=== PATIENT | male | born 1980 | race Caucasian/White ===

== ENCOUNTER → 2016-12-20 | Outpatient (CLI) | payer OTHER ==
--- NOTE | 2016-12-20 14:43 | FL ---
EXAMINATION TYPE: FL small bowel follow through DATE OF EXAM: 12/20/2016 COMPARISON: NONE HISTORY: Abdominal pain, history of ulcerative colitis TECHNIQUE: Following the oral administration of contrast sequential overhead radiographs were obtaine d. Fluoroscopic spot images of the distal small bowel and terminal ileum were obtained with real-time observation. FINDINGS: Transit time to the colon is 3 hours 20 minutes. Certified Orthotist/Pedorthist view is noncontributory Duodenum appears in normal position. Jejunal fold pattern appears normal. Ileal fold pattern appears normal. The terminal ileum appears normal. The cecum appears somewhat irregular. However, it is evident there is fecal debris present which may partially account for the appearance with incomplete distention. H owever, contrast extends into the transverse colon in the hepatic flexure also appears irregular. Wit h the patient's history of ulcerative colitis or underlying abnormality within the ascending colon an d hepatic flexure are not excluded. IMPRESSION: 1. Somewhat elongated transit time to the colon at 3 hours 20 minutes. 2. Structurally, small bowel appears within normal limits. 3. Irregularity within the cecum and ascending colon and hepatic flexure can be partially related to incomplete distention low underlying ulcerative colitis should also be considered within the differen tial.
== END | disposition home or self-care (01) ==
LOC: RADFLMAIN 09:07
PROVIDERS: ATTEND Surgery
DX: K63.89 Other specified diseases of intestine (principal)
CPT/HCPCS: 74250

== ENCOUNTER 2017-03-12 11:30 | Emergency (ER) | payer OTHER ==
[2017-03-12 11:35] VITALS: RESP 18
[2017-03-12] MEDS ORDERED: SODIUM CHLORIDE 0.9% 1,000 ML IV STA ×2 (12:34)
[2017-03-12] MEDS ORDERED: PANTOPRAZOLE 40 MG/10 ML VIAL IVP STA (12:34)
[2017-03-12] MEDS ORDERED: HYDROmorphone 2 MG/ML 1 ML SYRINGE IVP STA (12:34)
[2017-03-12] MEDS ORDERED: ONDANSETRON 4 MG/2 ML VIAL IVP STA (12:34)
[2017-03-12 13:18] LABS: ALT 53 U/L (21-72); AST 28 U/L (17-59); Albumin 4.5 g/dL (3.5-5.0); Alkaline Phosphatase 52 U/L (38-126); Amylase 55 U/L (30-110); Anion Gap 11 mmol/L; Appearance,Urine Clear (Clear); Bilirubin,Urine Negative (Negative); Blood Urea Nitrogen 17 mg/dL (9-20); Blood,Urine Negative (Negative); Calcium 9.8 mg/dL (8.4-10.2); Carbon Dioxide 29 mmol/L (22-30); Chloride 97 mmol/L (98-107); Color,Urine Yellow; Glucose 121 mg/dL (74-99); Glucose,Urine (UA) Negative (Negative); Ketones,Urine Negative (Negative); Leukocyte Esterase,Urine Negative (Negative); Lipase 86 U/L (23-300); Mucus,Urine Few /hpf; Nitrite,Urine Negative (Negative); Potassium 4.3 mmol/L (3.5-5.1); Protein,Urine 1+ (Negative); RBC,Urine 1 /hpf (0-5); Sodium 137 mmol/L (137-145); Specific Gravity,Urine 1.028 (1.001-1.035); Total Bilirubin 1.3 mg/dL (0.2-1.3); Total Protein 7.8 g/dL (6.3-8.2); WBC,Urine 2 /hpf (0-5)
[2017-03-12 13:31] LABS: Basophils % (A) 0 %; Eosinophils # (A) 0.1 k/uL (0-0.7); Eosinophils % (A) 1 %; HCT 48.8 % (39.0-53.0); HGB 16.3 gm/dL (13.0-17.5); Lymphocytes # (A) 1.1 k/uL (1.0-4.8); Lymphocytes % (A) 10 %; MCH 31.1 pg (25.0-35.0); MCHC 33.4 g/dL (31.0-37.0); MCV 93.1 fL (80.0-100.0); Mean Platelet Volume 7.2; Monocytes # (A) 0.5 k/uL (0-1.0); Monocytes % (A) 5 %; Neutrophils # (A) 9.2 k/uL (1.3-7.7); Neutrophils % (A) 84 %; Platelet Count 295 k/uL (150-450); RBC 5.24 m/uL (4.30-5.90); RDW 12.8 % (11.5-15.5); WBC 11.1 k/uL (3.8-10.6)
[2017-03-12] MEDS ORDERED: methylPREDNISolone SOD SUCCI 125 MG/2 ML VIAL IV STA (14:02)
--- NOTE | 2017-03-12 14:16 | ED ---
General Adult HPI - General Chief complaint: Nausea/Vomiting/Diarrhea Stated complaint: Vomiting Time Seen by Provider: 03/12/17 12:27 Source: patient, RN notes reviewed Mode of arrival: ambulatory Limitations: no limitations - History of Present Illness Initial comments: Patient is a 36-year-old male significant past mental history for ulcerative colitis, who presents emergency room today with a chief complaint of increased diarrhea and abdominal pain over the last week. Patient does admit that is been trying follow-up with GI. He states she's having issues with his insurance. He states he has been following up with family doctor who is been treating him in the meantime. He states been on steroids. He states that he is currently off steroids at this time just finishing. Patient states that he has a prescription to continue steroids but has been unable to get it because it was not feeling well over the last few days. He is supposed be on 10 mg of prednisone daily. Patient does admit that he has seen some blood in his stool. He admits to cramping in his abdomen. Patient states he has been able to keep down liquids. He has had some nausea. Denies any other complaints. Patient denies any recent fever, chills, shortness of breath, chest pain, back pain, vomiting, numbness or tingling, dysuria or hematuria, constipation, headaches or visual changes, or any other complaints. - Related Data Home Medications Medication Instructions Recorded Confirmed predniSONE See Taper PO DAILY 03/12/17 03/12/17 Previous Rx's Medication Instructions Recorded Ondansetron Odt [Zofran ODT] 4 mg PO Q8HR PRN #20 tab 03/12/17 Allergies Allergy/AdvReac Type Severity Reaction Status Date / Time No Known Allergies Allergy Verified 03/12/17 14:00 Review of Systems ROS Statement: Those systems with pertinent positive or pertinent negative responses have been documented in the HPI. ROS Other: All systems not noted in ROS Statement are negative. Past Medical History Past Medical History: No Reported History Additional Past Medical History / Comment(s): ulcerative colitis History of Any Multi-Drug Resistant Organisms: None Reported Past Surgical History: No Surgical Hx Reported Past Psychological History: No Psychological Hx Reported Smoking Status: Former smoker Past Alcohol Use History: None Reported Past Drug Use History: None Reported General Exam - General Exam Comments Initial Comments: General: The patient is awake and alert, in no distress, and does not appear acutely ill. Eye: Pupils are equal, round and reactive to light, extra-ocular movements are intact. No nystagmus. There is normal conjunctiva bilaterally. No signs of icterus. Ears, nose, mouth and throat: There are moist mucous membranes and no oral lesions. Neck: The neck is supple, there is no tenderness or JVD. Cardiovascular: There is a regular rate and rhythm. No murmur, rub or gallop is appreciated. Respiratory: Lungs are clear to auscultation, respirations are non-labored, breath sounds are equal. No wheezes, stridor, rales, or rhonchi. Gastrointestinal: Normal appearance of the abdomen. Normal bowel sounds. Soft on palpation. Patient does have tenderness to the left lower quadrant. No rebound tenderness. No guarding. No CVA tenderness. Musculoskeletal: Normal ROM, no tenderness. Strength 5/5. Sensation intact. Pulses equal bilaterally 2+. Neurological: A&O x 3. CN II-XII intact, There are no obvious motor or sensory deficits. Coordination appears grossly intact. Speech is normal. Skin: Skin is warm and dry and no rashes or lesions are noted. Psychiatric: Cooperative, appropriate mood & affect, normal judgment. Limitations: no limitations Course Vital Signs 03/12/17 11:32 Temperature 97 F L Pulse Rate 78 Respiratory 18 Rate Blood Pressure 129/85 O2 Sat by Pulse 100 Oximetry Medical Decision Making - Medical Decision Making Patient reexamined at this time shows no signs of distress. Options were discussed with patient about CT of the abdomen. Patient has declined. Patient' s white count 11.1. Has been on steroids. Patient does admit that he has a prescription to continue steroids. He states feeling better here in emergency room. States she feels comfortable being discharged home to follow up with his family doctor also GI. Patient will be given nausea medication go home with for his symptoms. Advised that he should return to emergency room if any symptoms increase worsen. He states understanding and is in agreement. - Lab Data Result diagrams: 03/12/17 12:57 03/12/17 12:57 Lab Results 03/12/17 03/12/17 03/12/17 Range/Units 12:57 12:57 12:57 WBC 11.1 H (3.8-10.6) k/uL RBC 5.24 (4.30-5.90) m/uL Hgb 16.3 (13.0-17.5) gm/dL Hct 48.8 (39.0-53.0) % MCV 93.1 (80.0-100.0) fL MCH 31.1 (25.0-35.0) pg MCHC 33.4 (31.0-37.0) g/dL RDW 12.8 (11.5-15.5) % Plt Count 295 (150-450) k/uL Neutrophils % 84 % Lymphocytes % 10 % Monocytes % 5 % Eosinophils % 1 % Basophils % 0 % Neutrophils # 9.2 H (1.3-7.7) k/uL Lymphocytes # 1.1 (1.0-4.8) k/uL Monocytes # 0.5 (0-1.0) k/uL Eosinophils # 0.1 (0-0.7) k/uL Basophils # 0.0 (0-0.2) k/uL Sodium 137 (137-145) mmol/L Potassium 4.3 (3.5-5.1) mmol/L Chloride 97 L (98-107) mmol/L Carbon Dioxide 29 (22-30) mmol/L Anion Gap 11 mmol/L BUN 17 (9-20) mg/dL Creatinine 0.90 (0.66-1.25) mg/dL Est GFR (MDRD) Af Amer >60 (>60 ml/min/1.73 sqM) Est GFR (MDRD) Non-Af >60 (>60 ml/min/1.73 sqM) Glucose 121 H (74-99) mg/dL Plasma Lactic Acid [place] 1.9 (0.7-2.0) mmol/L Calcium 9.8 (8.4-10.2) mg/dL Total Bilirubin 1.3 (0.2-1.3) mg/dL AST 28 (17-59) U/L ALT 53 (21-72) U/L Alkaline Phosphatase 52 (38-126) U/L Total Protein 7.8 (6.3-8.2) g/dL Albumin 4.5 (3.5-5.0) g/dL Amylase 55 (30-110) U/L Lipase 86 (23-300) U/L Urine Color Urine Appearance (Clear) Urine pH (5.0-8.0) Ur Specific [place] (1.001-1.035) Urine Protein (Negative) Urine Glucose (UA) (Negative) Urine Ketones (Negative) Urine Blood (Negative) Urine Nitrite (Negative) Urine Bilirubin (Negative) Urine Urobilinogen (<2.0) mg/dL Ur Leukocyte Esterase (Negative) Urine RBC (0-5) /hpf Urine WBC (0-5) /hpf Urine Mucus (None) /hpf 03/12/17 Range/Units 12:57 WBC (3.8-10.6) k/uL RBC (4.30-5.90) m/uL Hgb (13.0-17.5) gm/dL Hct (39.0-53.0) % MCV (80.0-100.0) fL MCH (25.0-35.0) pg MCHC (31.0-37.0) g/dL RDW (11.5-15.5) % Plt Count (150-450) k/uL Neutrophils % % Lymphocytes % % Monocytes % % Eosinophils % % Basophils % % Neutrophils # (1.3-7.7) k/uL Lymphocytes # (1.0-4.8) k/uL Monocytes # (0-1.0) k/uL Eosinophils # (0-0.7) k/uL Basophils # (0-0.2) k/uL Sodium (137-145) mmol/L Potassium (3.5-5.1) mmol/L Chloride (98-107) mmol/L Carbon Dioxide (22-30) mmol/L Anion Gap mmol/L BUN (9-20) mg/dL Creatinine (0.66-1.25) mg/dL Est GFR (MDRD) Af Amer (>60 ml/min/1.73 sqM) Est GFR (MDRD) Non-Af (>60 ml/min/1.73 sqM) Glucose (74-99) mg/dL Plasma Lactic Acid [place] (0.7-2.0) mmol/L Calcium (8.4-10.2) mg/dL Total Bilirubin (0.2-1.3) mg/dL AST (17-59) U/L ALT (21-72) U/L Alkaline Phosphatase (38-126) U/L Total Protein (6.3-8.2) g/dL Albumin (3.5-5.0) g/dL Amylase (30-110) U/L Lipase (23-300) U/L Urine Color Yellow Urine Appearance Clear (Clear) Urine pH 6.0 (5.0-8.0) Ur Specific [place] 1.028 (1.001-1.035) Urine Protein 1+ H (Negative) Urine Glucose (UA) Negative (Negative) Urine Ketones Negative (Negative) Urine Blood Negative (Negative) Urine Nitrite Negative (Negative) Urine Bilirubin Negative (Negative) Urine Urobilinogen 3.0 (<2.0) mg/dL Ur Leukocyte Esterase Negative (Negative) Urine RBC 1 (0-5) /hpf Urine WBC 2 (0-5) /hpf Urine Mucus Few H (None) /hpf Disposition Clinical Impression: Abdominal pain Disposition: HOME SELF-CARE Condition: Good Instructions: Abdominal Pain (ED) Additional Instructions: Please follow-up with family doctor and GI as discussed. Please return here to the emergency room if any symptoms increase or worsen or for any other concerns. Prescriptions: Ondansetron Odt [Zofran ODT] 4 mg PO Q8HR PRN #20 tab PRN Reason: Nausea Referrals: Stas Bautista MD [Primary Care Provider] - 1-2 days Time of Disposition: 14:15
[2017-03-12 14:30] VITALS: BP 135/75; PULSE 60; TEMP 98.4
== END 2017-03-12 14:34 | disposition home or self-care (01) ==
LOC: EC 11:30
DX: R10.9 Unspecified abdominal pain (principal); K51.90 Ulcerative colitis, unspecified, without complications; R19.7 Diarrhea, unspecified; R11.0 Nausea; K92.1 Melena; Z87.891 Personal history of nicotine dependence; Z79.52 Long term (current) use of systemic steroids
CPT/HCPCS: 36415; 80053; 82150; 83605; 83690; 85025; 81001; 99284; 96374; 96375 ×3; 96361; J1170; J2930; J2405; C9113

== ENCOUNTER 2017-03-21 09:14 | Inpatient (IN) | payer OTHER ==
[2017-03-21] MEDS ORDERED: RX INFO: IV CONTRAST WAS GIVEN 1 EACH MISC MISCELLANE PRN (09:40)
[2017-03-21] MEDS ORDERED: ONDANSETRON 4 MG/2 ML VIAL IVP STA (09:40)
[2017-03-21] MEDS ORDERED: HYDROmorphone 4 MG/ML 1 ML SYRINGE IVP STA (09:40)
[2017-03-21] MEDS ORDERED: SODIUM CHLORIDE 0.9% 1,000 ML IV STA (09:40)
[2017-03-21] MEDS ORDERED: PANTOPRAZOLE 40 MG/10 ML VIAL IVP STA (09:41)
--- NOTE | 2017-03-21 09:45 | ED ---
General Adult HPI - General Chief complaint: Abdominal Pain Stated complaint: Rectal pain Time Seen by Provider: 03/21/17 09:33 Source: patient, RN notes reviewed Mode of arrival: ambulatory Limitations: no limitations - History of Present Illness Initial comments: Patient 36-year-old male with significant past mental history for ulcerative colitis, presenting to the emergency room today with chief complaint of increased lower abdominal pain and diarrhea. He does admit that he's had nausea and vomiting. Admits that he's had blood in his stool is been a bright color also his stool is dark are now after taking sulfasalazine. Patient states that his been trying follow-up with GI. Patient states that he has been unable to due to insurance problems but is been being treated by the family doctor. Currently on steroids 10 mg which he has just 2 days left. Patient states still having increased lower abdominal cramping. difficult time keeping down medications of nausea vomiting. Patient denies any other complaints. Patient denies any recent fever, chills, shortness of breath, chest pain, back pain, numbness or tingling, dysuria or hematuria, constipation, headaches or visual changes, or any other complaints. - Related Data Home Medications Medication Instructions Recorded Confirmed predniSONE See Taper PO DIRECTED 03/21/17 03/21/17 sulfaSALAzine [Azulfidine] 500 mg PO QID 03/21/17 03/21/17 Allergies Allergy/AdvReac Type Severity Reaction Status Date / Time No Known Allergies Allergy Verified 03/21/17 09:45 Review of Systems ROS Statement: Those systems with pertinent positive or pertinent negative responses have been documented in the HPI. ROS Other: All systems not noted in ROS Statement are negative. Past Medical History Past Medical History: No Reported History Additional Past Medical History / Comment(s): ulcerative colitis History of Any Multi-Drug Resistant Organisms: None Reported Past Surgical History: No Surgical Hx Reported Past Psychological History: No Psychological Hx Reported Smoking Status: Former smoker Past Alcohol Use History: None Reported Past Drug Use History: None Reported General Exam - General Exam Comments Initial Comments: General: The patient is awake and alert, in no distress, and does not appear acutely ill. Eye: Pupils are equal, round and reactive to light, extra-ocular movements are intact. No nystagmus. There is normal conjunctiva bilaterally. No signs of icterus. Ears, nose, mouth and throat: There are moist mucous membranes and no oral lesions. Neck: The neck is supple, there is no tenderness or JVD. Cardiovascular: There is a regular rate and rhythm. No murmur, rub or gallop is appreciated. Respiratory: Lungs are clear to auscultation, respirations are non-labored, breath sounds are equal. No wheezes, stridor, rales, or rhonchi. Gastrointestinal: Normal appearance the abdomen. Normal bowel sounds. Abdomen soft on palpation but increased tenderness to the lower quadrants. No rebound tenderness. No guarding. No CVA tenderness. Musculoskeletal: Normal ROM, no tenderness. Strength 5/5. Sensation intact. Pulses equal bilaterally 2+. Neurological: A&O x 3. CN II-XII intact, There are no obvious motor or sensory deficits. Coordination appears grossly intact. Speech is normal. Skin: Skin is warm and dry and no rashes or lesions are noted. Psychiatric: Cooperative, appropriate mood & affect, normal judgment. Limitations: no limitations Course Vital Signs 03/21/17 03/21/17 03/21/17 09:16 10:08 10:45 Temperature 97.7 F Pulse Rate 87 84 68 Respiratory 18 16 16 Rate Blood Pressure 133/80 165/86 122/76 O2 Sat by Pulse 99 96 98 Oximetry Medical Decision Making - Medical Decision Making Patient's CT reviewed and shows circumferential long segment bowel wall thickening of the rectum, sigmoid colon, and descending colon likely representing actively inflammatory disease although infectious colitis is also a possibility as read by radiologist Dr. Yan. Patient will be started on a dose of steroids here in the emergency room. Admitted to the hospital with GI consult. - Lab Data Result diagrams: 03/21/17 09:52 03/21/17 09:52 Lab Results 03/21/17 03/21/17 03/21/17 Range/Units 09:52 09:52 09:52 WBC 11.9 H (3.8-10.6) k/uL RBC 4.85 (4.30-5.90) m/uL Hgb 15.5 (13.0-17.5) gm/dL Hct 46.3 (39.0-53.0) % MCV 95.5 (80.0-100.0) fL MCH 31.9 (25.0-35.0) pg MCHC 33.4 (31.0-37.0) g/dL RDW 12.5 (11.5-15.5) % Plt Count 139 L D (150-450) k/uL Neutrophils % 81 % Lymphocytes % 13 % Monocytes % 4 % Eosinophils % 2 % Basophils % 1 % Neutrophils # 9.6 H (1.3-7.7) k/uL Lymphocytes # 1.5 (1.0-4.8) k/uL Monocytes # 0.4 (0-1.0) k/uL Eosinophils # 0.2 (0-0.7) k/uL Basophils # 0.1 (0-0.2) k/uL Sodium 138 (137-145) mmol/L Potassium 4.4 (3.5-5.1) mmol/L Chloride 101 (98-107) mmol/L Carbon Dioxide 26 (22-30) mmol/L Anion Gap 11 mmol/L BUN 13 (9-20) mg/dL Creatinine 0.78 (0.66-1.25) mg/dL Est GFR (MDRD) Af Amer >60 (>60 ml/min/1.73 sqM) Est GFR (MDRD) Non-Af >60 (>60 ml/min/1.73 sqM) Glucose 117 H (74-99) mg/dL Plasma Lactic Acid [place] 1.6 (0.7-2.0) mmol/L Calcium 9.4 (8.4-10.2) mg/dL Total Bilirubin 0.7 (0.2-1.3) mg/dL AST 73 H (17-59) U/L ALT 138 H (21-72) U/L Alkaline Phosphatase 55 (38-126) U/L Total Protein 7.3 (6.3-8.2) g/dL Albumin 4.2 (3.5-5.0) g/dL Amylase 53 (30-110) U/L Lipase 92 (23-300) U/L Urine Color Urine Appearance (Clear) Urine pH (5.0-8.0) Ur Specific [place] (1.001-1.035) Urine Protein (Negative) Urine Glucose (UA) (Negative) Urine Ketones (Negative) Urine Blood (Negative) Urine Nitrite (Negative) Urine Bilirubin (Negative) Urine Urobilinogen (<2.0) mg/dL Ur Leukocyte Esterase (Negative) 03/21/17 Range/Units 10:35 WBC (3.8-10.6) k/uL RBC (4.30-5.90) m/uL Hgb (13.0-17.5) gm/dL Hct (39.0-53.0) % MCV (80.0-100.0) fL MCH (25.0-35.0) pg MCHC (31.0-37.0) g/dL RDW (11.5-15.5) % Plt Count (150-450) k/uL Neutrophils % % Lymphocytes % % Monocytes % % Eosinophils % % Basophils % % Neutrophils # (1.3-7.7) k/uL Lymphocytes # (1.0-4.8) k/uL Monocytes # (0-1.0) k/uL Eosinophils # (0-0.7) k/uL Basophils # (0-0.2) k/uL Sodium (137-145) mmol/L Potassium (3.5-5.1) mmol/L Chloride (98-107) mmol/L Carbon Dioxide (22-30) mmol/L Anion Gap mmol/L BUN (9-20) mg/dL Creatinine (0.66-1.25) mg/dL Est GFR (MDRD) Af Amer (>60 ml/min/1.73 sqM) Est GFR (MDRD) Non-Af (>60 ml/min/1.73 sqM) Glucose (74-99) mg/dL Plasma Lactic Acid [place] (0.7-2.0) mmol/L Calcium (8.4-10.2) mg/dL Total Bilirubin (0.2-1.3) mg/dL AST (17-59) U/L ALT (21-72) U/L Alkaline Phosphatase (38-126) U/L Total Protein (6.3-8.2) g/dL Albumin (3.5-5.0) g/dL Amylase (30-110) U/L Lipase (23-300) U/L Urine Color Dark Yellow Urine Appearance Clear (Clear) Urine pH 6.5 (5.0-8.0) Ur Specific [place] 1.025 (1.001-1.035) Urine Protein Trace H (Negative) Urine Glucose (UA) Negative (Negative) Urine Ketones Negative (Negative) Urine Blood Negative (Negative) Urine Nitrite Negative (Negative) Urine Bilirubin Negative (Negative) Urine Urobilinogen <2.0 (<2.0) mg/dL Ur Leukocyte Esterase Negative (Negative) Disposition Clinical Impression: Ulcerative colitis Disposition: ADMITTED IP TO THIS HOSP Condition: Stable Referrals: Stas Bautista MD [Primary Care Provider] - 1-2 days Time of Disposition: 11:31
--- NOTE | 2017-03-21 10:26 | XR ---
EXAMINATION TYPE: XR KUB DATE OF EXAM: 03/21/2017 COMPARISON: NONE HISTORY: Pain TECHNIQUE: Single supine KUB image of the abdomen is obtained FINDINGS: Small bowel demonstrates no evidence for dilatation or air fluid levels. Gas and fecal material is seen in non-distended colon. No convincing evidence for pneumoperitoneum. No unusual calcifications. The lung bases are clear. The osseous structures are intact. IMPRESSION: 1. Overall nonobstructive bowel gas pattern.
[2017-03-21 10:27] LABS: ALT 138 U/L (21-72); AST 73 U/L (17-59); Albumin 4.2 g/dL (3.5-5.0); Alkaline Phosphatase 55 U/L (38-126); Amylase 53 U/L (30-110); Anion Gap 11 mmol/L; Basophils # (A) 0.1 k/uL (0-0.2); Basophils % (A) 1 %; Blood Urea Nitrogen 13 mg/dL (9-20); Calcium 9.4 mg/dL (8.4-10.2); Carbon Dioxide 26 mmol/L (22-30); Chloride 101 mmol/L (98-107); Eosinophils # (A) 0.2 k/uL (0-0.7); Eosinophils % (A) 2 %; Glucose 117 mg/dL (74-99); HCT 46.3 % (39.0-53.0); HGB 15.5 gm/dL (13.0-17.5); Lipase 92 U/L (23-300); Lymphocytes # (A) 1.5 k/uL (1.0-4.8); Lymphocytes % (A) 13 %; MCH 31.9 pg (25.0-35.0); MCHC 33.4 g/dL (31.0-37.0); MCV 95.5 fL (80.0-100.0); Mean Platelet Volume 7.6; Monocytes # (A) 0.4 k/uL (0-1.0); Monocytes % (A) 4 %; Neutrophils # (A) 9.6 k/uL (1.3-7.7); Neutrophils % (A) 81 %; Potassium 4.4 mmol/L (3.5-5.1); RBC 4.85 m/uL (4.30-5.90); RDW 12.5 % (11.5-15.5); Sodium 138 mmol/L (137-145); Total Bilirubin 0.7 mg/dL (0.2-1.3); Total Protein 7.3 g/dL (6.3-8.2); WBC 11.9 k/uL (3.8-10.6)
[2017-03-21 10:33] LABS: Platelet Count 139 k/uL (150-450)
[2017-03-21 11:03] LABS: Appearance,Urine Clear (Clear); Bilirubin,Urine Negative (Negative); Blood,Urine Negative (Negative); Color,Urine Dark Yellow; Glucose,Urine (UA) Negative (Negative); Ketones,Urine Negative (Negative); Leukocyte Esterase,Urine Negative (Negative); Nitrite,Urine Negative (Negative); PH, Urine 6.5 (5.0-8.0); Protein,Urine Trace (Negative); Specific Gravity,Urine 1.025 (1.001-1.035); Urobilinogen,Urine <2.0 mg/dL (<2.0)
--- NOTE | 2017-03-21 11:04 | CT ---
EXAMINATION TYPE: CT abdomen pelvis w con DATE OF EXAM: 03/21/2017 COMPARISON: NONE HISTORY: Patient complains of generalized abdominal pain, nausea, diarrhea, and bloody stools. Patie nt was recently diagnosed with ulcerative colitis. CT DLP: 473.9 mGycm Automated exposure control for dose reduction was used. TECHNIQUE: Helical acquisition of images was performed from the lung bases through the pelvis. CONTRAST: Performed without Oral Contrast and with IV Contrast, patient injected with 100 mL of Omnipaque 300. Lack of oral contrast limits evaluation of the bowel. FINDINGS: LUNG BASES: No significant abnormality is appreciated. LIVER/GB: No significant abnormality is appreciated. No cholelithiasis. PANCREAS: No ductal dilatation. SPLEEN: No splenomegaly. ADRENALS: No significant abnormality is seen. KIDNEYS: Kidneys enhance and excrete symmetrically. No hydronephrosis. FREE AIR: No free air is visualized. ADENOPATHY: No greater than 1 cm short axis lymph nodes are seen REPRODUCTIVE ORGANS: No significant abnormality is seen URINARY BLADDER: No significant abnormality is seen. OSSEOUS STRUCTURES: No significant abnormality is seen. No sacroiliitis. BOWEL: Lack of oral contrast limits evaluation of the bowel. Although the rectum, sigmoid colon, and descending colon are decompressed there appears to be mucosal thickening throughout and minimal infla mmatory fat stranding in the pelvis. Haustral thickening is best appreciated on coronal images. The t ransverse colon and ascending colon are unremarkable. Appendix is air-filled and within normal limits . No terminal ileal thickening. No evidence of dilated bowel to suggest obstruction. IMPRESSION: CIRCUMFERENTIAL LONG SEGMENT BOWEL WALL THICKENING OF THE RECTUM, SIGMOID COLON AND DESCENDING COLON LIKELY REPRESENTING ACTIVE INFLAMMATORY BOWEL DISEASE ALTHOUGH INFECTIOUS COLITIS IS ALSO A POSSIBILI TY.
[2017-03-21] MEDS ORDERED: methylPREDNISolone SOD SUCCI 125 MG/2 ML VIAL IV STA (11:20)
[2017-03-21] MEDS ORDERED: HYDROmorphone 2 MG/ML 1 ML SYRINGE IVP PRN (11:31)
[2017-03-21] MEDS ORDERED: NALOXONE 0.4 MG/ML 1 ML VIAL IV PRN (11:31)
[2017-03-21] MEDS: HYDROmorphone 4 MG/ML 1 ML SYRINGE IVP PRN ×5 (13:00→23:58)
[2017-03-21] MEDS: METOCLOPRAMIDE 5 MG/ML 2 ML VIAL IVP PRN ×2 (15:43→20:59)
[2017-03-21] MEDS: sulfaSALAzine 500 MG TAB PO SCH ×2 (18:20→21:01)
[2017-03-21] MEDS: ONDANSETRON 4 MG/2 ML VIAL IVP PRN (18:25)
[2017-03-22] MEDS: ONDANSETRON 4 MG/2 ML VIAL IVP PRN ×3 (02:59→20:42)
[2017-03-22] MEDS: HYDROmorphone 4 MG/ML 1 ML SYRINGE IVP PRN ×5 (02:59→20:42)
[2017-03-22] MEDS: METOCLOPRAMIDE 5 MG/ML 2 ML VIAL IVP PRN ×2 (05:42→11:35)
[2017-03-22] MEDS: sulfaSALAzine 500 MG TAB PO SCH ×4 (08:16→22:56)
[2017-03-22 08:25] LABS: Basophils % (A) 0 %; Eosinophils % (A) 0 %; HCT 39.4 % (39.0-53.0); HGB 12.9 gm/dL (13.0-17.5); Lymphocytes # (A) 2.1 k/uL (1.0-4.8); Lymphocytes % (A) 16 %; MCH 31.3 pg (25.0-35.0); MCHC 32.7 g/dL (31.0-37.0); MCV 95.7 fL (80.0-100.0); Mean Platelet Volume 7.6; Monocytes # (A) 0.7 k/uL (0-1.0); Monocytes % (A) 5 %; Neutrophils # (A) 10.3 k/uL (1.3-7.7); Neutrophils % (A) 77 %; Platelet Count 129 k/uL (150-450); RBC 4.12 m/uL (4.30-5.90); RDW 12.4 % (11.5-15.5); WBC 13.3 k/uL (3.8-10.6)
[2017-03-22 08:37] LABS: ALT 100 U/L (21-72); AST 40 U/L (17-59); Albumin 3.4 g/dL (3.5-5.0); Alkaline Phosphatase 44 U/L (38-126); Anion Gap 8 mmol/L; Blood Urea Nitrogen 11 mg/dL (9-20); Calcium 8.8 mg/dL (8.4-10.2); Carbon Dioxide 28 mmol/L (22-30); Chloride 100 mmol/L (98-107); Glucose 105 mg/dL (74-99); Potassium 3.9 mmol/L (3.5-5.1); Sodium 136 mmol/L (137-145); Total Bilirubin 0.7 mg/dL (0.2-1.3); Total Protein 5.9 g/dL (6.3-8.2)
[2017-03-22] MEDS ORDERED: PANTOPRAZOLE 40 MG/10 ML VIAL IV SCH (09:00)
--- NOTE | 2017-03-22 10:44 | P.CONS ---
History of Present Illness - Reason for Consult Consult date: 03/22/17 ulcerative colitis Requesting physician: Stas Bautista - Chief Complaint abdominal pain and rectal bleeding - History of Present Illness 36-year-old male admitted with rectal bleeding and lower abdominal pain. He reports being diagnosed with ulcerative colitis in November 2016 via colonoscopy performed by Dr. Barraza and placed on low-dose steroids for several weeks. Patient is unsure what portions of his colon/rectum were involved seen on endoscopy. Secondary to insurance changes he was additionally provided sulfasalazine 500 mg 4 times a day by his primary without improvement of his symptoms. Patient is still experiencing multiple daily bowel movements that are blood tinged with lower abdominal discomfort. CT abdomen and pelvis reported left-sided colon/rectal inflammation colitis. No fevers. No recent antibiotics. Unintentional weight loss about 30 pounds in the last 6 months. His symptoms of rectal bleeding and discomfort did not start until the fall prior to that he reports a benign medical history. quit smoking a few months ago. No abdominal surgeries. white count 11.9-13.3. Hemoglobin 12.9-15.5. Platelet 129. no history of familial inflammatory bowel disease. Review of Systems Constitutional: Denies fever, chills, sweats, weight gain, or loss. HEENT: Negative for migraines, blurred vision or loss, earaches, drainage, tinnitus, oral mucosal lesions, dysphagia, or odynophagia. Cardiac: Negative for chest pain, arrhythmias, or palpitation. Respiratory: Negative for shortness of breath, hemoptysis, cough, or sputum production. Gastrointestinal: See HPI for pertinent findings. Genitourinary: Negative for hematuria, urgency, frequency, polyuria, dysuria, or penile discharge. Musculoskeletal: Negative for muscle aches, swelling, arthritis, and arthralgias. Neurologic: Negative for stroke or TIA. Endocrine: Negative for thyroid problems. Skin: Negative for rash or itching. Psychiatric: Negative history for depression and anxiety Past Medical History Past Medical History: No Reported History Additional Past Medical History / Comment(s): ulcerative colitis History of Any Multi-Drug Resistant Organisms: None Reported Past Surgical History: No Surgical Hx Reported Additional Past Surgical History / Comment(s): colonoscopy Past Anesthesia/Blood Transfusion Reactions: No Reported Reaction Smoking Status: Former smoker - Past Family History Mother Family Medical History: No Reported History Father Additional Family Medical History / Comment(s): pacemaker Medications and Allergies Home Medications Medication Instructions Recorded Confirmed Type predniSONE See Taper PO DIRECTED 03/21/17 03/21/17 History sulfaSALAzine [Azulfidine] 500 mg PO QID 03/21/17 03/21/17 History predniSONE 10 mg PO DIRECTED #123 tab 03/23/17 Rx sulfaSALAzine [Azulfidine] 1,000 mg PO QID #120 tablet 03/23/17 Rx Allergies Allergy/AdvReac Type Severity Reaction Status Date / Time No Known Allergies Allergy Verified 03/21/17 09:45 Physical Exam Vitals: Vital Signs Temp Pulse Pulse Resp BP BP Pulse Ox 03/22/17 08:00 68 16 03/22/17 07:00 97.7 F 59 L 16 115/70 95 03/21/17 23:00 98.2 F 68 16 101/58 95 03/21/17 18:00 97.4 F L 71 18 112/64 98 03/21/17 16:19 97.6 F 72 18 121/60 96 03/21/17 16:05 97.8 F 70 18 136/65 98 03/21/17 12:29 71 18 119/70 99 03/21/17 11:32 66 16 117/77 98 03/21/17 10:45 68 16 122/76 98 Intake and Output 03/21/17 03/22/17 03/22/17 22:59 06:59 14:59 Intake Total 700 540 Balance 700 540 Intake: Oral 700 540 Other: Voiding Method Toilet Toilet Toilet # Voids 2 2 General appearance: The patient is alert, oriented, in no acute distress. HET: Head is normocephalic and atraumatic. Pupils are equal and reactive. Oropharynx is clear without lesions. Neck: Supple without lymphadenopathy. Trachea midline. Heart: S1 S2. Regular rate and rhythm. Lungs: No crackles or wheezes are heard. Abdomen: Soft, mild left lower quadrant abdominal tenderness, nondistended with bowel sounds. No peritoneal signs. No palpable organomegaly or masses. Extremities: Normal skin color and turgor. No cyanosis, rash, ulceration, clubbing, or edema. Radial and pedal pulses are 2/4 bilaterally. Neurological: No focal deficits. Strength and sensation are grossly intact. Results CBC & Chem 7: 03/22/17 07:42 03/22/17 07:42 Labs: Abnormal Lab Results - Last 24 Hours (Table) 03/21/17 03/21/17 03/22/17 Range/Units 09:52 10:35 07:42 WBC 13.3 H (3.8-10.6) k/uL RBC 4.12 L (4.30-5.90) m/uL Hgb 12.9 L (13.0-17.5) gm/dL Plt Count 129 L (150-450) k/uL Neutrophils # 10.3 H (1.3-7.7) k/uL Sodium (137-145) mmol/L Glucose 117 H (74-99) mg/dL AST 73 H (17-59) U/L ALT 138 H (21-72) U/L Total Protein (6.3-8.2) g/dL Albumin (3.5-5.0) g/dL Urine Protein Trace H (Negative) 03/22/17 Range/Units 07:42 WBC (3.8-10.6) k/uL RBC (4.30-5.90) m/uL Hgb (13.0-17.5) gm/dL Plt Count (150-450) k/uL Neutrophils # (1.3-7.7) k/uL Sodium 136 L (137-145) mmol/L Glucose 105 H (74-99) mg/dL AST (17-59) U/L ALT 100 H (21-72) U/L Total Protein 5.9 L (6.3-8.2) g/dL Albumin 3.4 L (3.5-5.0) g/dL Urine Protein (Negative) CT scan - abdomen: report reviewed (Dr. 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 imaging reported left sided colonic rectal thickening consistent with colitis suspect inflammatory colitis. Current Visit: Yes Status: Acute Code(s): K51.90 - ULCERATIVE COLITIS, UNSPECIFIED, WITHOUT COMPLICATIONS SNOMED Code(s): 99580957 (2) GI bleed Current Visit: Yes Status: Acute Code(s): K92.2 - GASTROINTESTINAL HEMORRHAGE, UNSPECIFIED SNOMED Code(s): 83721666 (3) Abdominal pain Current Visit: No Status: Acute Code(s): R10.9 - UNSPECIFIED ABDOMINAL PAIN SNOMED Code(s): 74570023 Plan: 1. Increase sulfasalazine 1000 mg 4 times a day. 2. IV steroids Solu-Medrol 40 mg every 8 hours. 3. Colonoscopy/pathology report requested and to be placed on chart for review. Oral steroids versus enema based preparations will be decided on discharge based on review of colonoscopy report/biopsy findings. 4. Protonix 40 mg IV daily. 5. Clear liquid diet advance as tolerated. 6. Stool studies including Clostridium difficile testing. 7. CRP sed rate. 8. CBC monitoring. 9. Inpatient endoscopy not planned at this time. 10. Unfortunately GI office does not accept patients insurance he was advised to follow up with his primary addition or call his insurance company for referral choices. Thank you for this kind referral and the opportunity to participate in the care of your patient. This consultation was discussed with Dr. Whiting. The impression and plan of care have been directed as dictated.
[2017-03-22 11:27] VITALS: BMI 26.4
[2017-03-22] MEDS: methylPREDNISolone SOD SUCCI 40 MG/ML 1 ML VIAL IV SCH ×3 (11:27→22:58)
[2017-03-22] MEDS ORDERED: diphenhydrAMINE 25 MG CAP PO PRN (13:07)
--- NOTE | 2017-03-22 16:40 | HP ---
HISTORY AND PHYSICAL CHIEF COMPLAINT: Abdominal pain. HISTORY OF PRESENT ILLNESS: This is the first known admission for this 36-year-old white male who has been coming to the office recently with a flare-up of ulcerative colitis. He was started on steroids, which seemed to help somewhat, but he was continued to have difficulty and he was started on Azulfidine. Pain steadily became worse, however, he presented to the emergency room where he was admitted with acute exacerbation of ulcerative colitis. REVIEW OF SYSTEMS: He has had no headaches, neurologic problems, chest pain, shortness of breath, cough, hemoptysis, heart disease, hypertension, hematemesis, and melena, jaundice, etc. He does have loose stool and occasionally there is blood. He has had no renal disease, diabetes, or other medical signs or symptoms. PAST MEDICAL HISTORY: Past medical history, family history and personal and social histories are all otherwise unremarkable. ALLERGIES: He is not allergic to any medication. He recently quit smoking. MEDICATIONS: Include Azulfidine and prednisone 10 mg a day. PHYSICAL EXAM: Blood pressure 118/90 with a pulse of 66, respirations of 18. He is afebrile. GENERAL: He appeared to be well developed, well nourished, no acute distress but he was uncomfortable. Head, ears, eyes, nose, mouth, and throat were normal. Neck veins not distended. Thyroid is not enlarged. Chest is clear. Cardiac exam is normal. The abdomen is quite tender throughout and more so on the left side of the abdomen. Bowel sounds are present. There are no masses. Extremities: Normal. Neurological: He is intact. IMPRESSION: Acute exacerbation of ulcerative colitis. PLAN: 1. Bed rest. 2. IV fluids. 3. Clear liquids. 4. Steroids boost. 5. Gastroenterology consult. MMODL / IJN: [id number] /
--- NOTE | 2017-03-22 16:43 | PN ---
PROGRESS NOTE DATE OF SERVICE: 03/22/17 CHIEF COMPLAINT: Exacerbation of ulcer colitis. HISTORY OF PRESENT ILLNESS: This gentleman is having a lot of abdominal pain. He has had no fever, chills, and he has had no vomiting. PHYSICAL EXAM: Abdomen is quite tender, particularly on the left. Bowel sounds are present. Chest is clear. Cardiac exam is normal. IMPRESSION: Acute exacerbation of ulcerative colitis. PLAN: Continue to follow with med surg with medication changes that have been made. MMODL / IJN: [id number] /
[2017-03-23] MEDS: METOCLOPRAMIDE 5 MG/ML 2 ML VIAL IVP PRN ×2 (00:27→12:28)
[2017-03-23] MEDS: HYDROmorphone 4 MG/ML 1 ML SYRINGE IVP PRN ×5 (00:34→18:37)
[2017-03-23] MEDS: ONDANSETRON 4 MG/2 ML VIAL IVP PRN ×2 (08:18→18:37)
[2017-03-23] MEDS: sulfaSALAzine 500 MG TAB PO SCH ×4 (08:21→21:37)
[2017-03-23] MEDS: PANTOPRAZOLE 40 MG TABLET PO SCH (08:21)
[2017-03-23] MEDS: methylPREDNISolone SOD SUCCI 40 MG/ML 1 ML VIAL IV SCH (08:21)
--- NOTE | 2017-03-23 09:44 | P.PN ---
Subjective Progress Note Date: 03/23/17 Principal diagnosis: Exacerbation of ulcerative colitis Much improved. No bowel movements. No bleeding. Tolerating full liquid diet. Afebrile. Colonoscopy report reviewed disease seems to be mostly rectosigmoid involvement some colitis seen in the hepatic flexure however pathology was not sent over from office to review. Objective - Vital Signs Vital signs: Vital Signs Temp 97.5 F L 03/23/17 07:00 Pulse 71 03/23/17 07:00 Resp 18 03/23/17 07:00 BP 123/77 03/23/17 07:00 Pulse Ox 100 03/23/17 07:00 Intake & Output 03/22/17 03/23/17 03/23/17 18:59 06:59 18:59 Intake Total 120 Balance 120 Weight 90.718 kg Intake: Oral 120 Other: Voiding Method Toilet Toilet Toilet # Voids 3 2 - Exam General appearance: The patient is alert, oriented, in no acute distress. HET: Head is normocephalic and atraumatic. Pupils are equal and reactive. Oropharynx is clear without lesions. Neck: Supple without lymphadenopathy. Trachea midline. Heart: S1 S2. Regular rate and rhythm. Lungs: No crackles or wheezes are heard. Abdomen: Soft, nontender, nondistended with bowel sounds. No peritoneal signs. No palpable organomegaly or masses. Extremities: Normal skin color and turgor. No cyanosis, rash, ulceration, clubbing, or edema. Radial and pedal pulses are 2/4 bilaterally. Neurological: No focal deficits. Strength and sensation are grossly intact. 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 imaging reported left sided colonic rectal thickening consistent with colitis suspect inflammatory colitis. Current Visit: Yes Status: Acute Code(s): K51.90 - ULCERATIVE COLITIS, UNSPECIFIED, WITHOUT COMPLICATIONS SNOMED Code(s): 01260208 (2) GI bleed Current Visit: Yes Status: Acute Code(s): K92.2 - GASTROINTESTINAL HEMORRHAGE, UNSPECIFIED SNOMED Code(s): 95663513 (3) Abdominal pain Current Visit: No Status: Acute Code(s): R10.9 - UNSPECIFIED ABDOMINAL PAIN SNOMED Code(s): 90307523 Plan: 1. Discharge per medicine today. Discontinue IV steroids start prednisone 40 mg daily tapering prescription provided. Increase sulfasalazine 1 g 4 times a day prescription provided. 2. Low residue diet for the next 2-3 days then resume regular fiber diet. 3. Pathology report from colonoscopy in November was requested from office to review. 4. Unfortunately GI office does not accept patients insurance he was advised to follow up with his primary addition or call his insurance company for referral choices. Assessment and plan a care discussed with Dr. Whiting
--- NOTE | 2017-03-23 16:57 | PN ---
PROGRESS NOTE CHIEF COMPLAINT: Ulcerative colitis. HISTORY OF PRESENT ILLNESS: This gentleman is doing quite a bit better. He is having significantly less pain in his stay. He has not had a bowel movement. PHYSICAL EXAM: He is afebrile. Chest is clear. Cardiac exam is normal. The abdomen remains slightly tender. IMPRESSION: Ulcerative colitis. PLAN: Continue with current program until he is able to be discharged. MMODL / IJN: [id number] /
[2017-03-23] MEDS: HYDROmorphone 0.5 MG/0.5 ML SYRINGE IVP PRN (21:37)
[2017-03-24] MEDS: HYDROmorphone 0.5 MG/0.5 ML SYRINGE IVP PRN ×6 (00:40→17:29)
[2017-03-24] MEDS: METOCLOPRAMIDE 5 MG/ML 2 ML VIAL IVP PRN ×2 (00:40→20:44)
[2017-03-24] MEDS: ONDANSETRON 4 MG/2 ML VIAL IVP PRN ×2 (04:23→23:44)
[2017-03-24] MEDS: sulfaSALAzine 500 MG TAB PO SCH ×4 (07:41→20:47)
[2017-03-24] MEDS: predniSONE 20 MG TAB PO SCH (07:42)
[2017-03-24] MEDS: PANTOPRAZOLE 40 MG TABLET PO SCH (07:42)
--- NOTE | 2017-03-24 15:04 | PN ---
PROGRESS NOTE CHIEF COMPLAINT: Abdominal pain and ulcerative colitis. HISTORY OF PRESENT ILLNESS: This gentleman's pain is not any better. It may be a little bit worse than yesterday. He has had no vomiting, fever and chills, etc. He is not having bowel movements. PHYSICAL EXAM: He is quite tender in the right side of the abdomen. There are no definite masses. Bowel sounds are diminished. Chest is clear and cardiac exam is normal. IMPRESSION: Ulcerative colitis. PLAN: Continue with current treatment program and analgesics. MMODL / IJN: [id number] /
[2017-03-24] MEDS: HYDROmorphone 4 MG TABLET PO PRN ×2 (20:44→23:44)
[2017-03-25] MEDS: HYDROmorphone 4 MG TABLET PO PRN ×5 (02:41→21:50)
[2017-03-25] MEDS: METOCLOPRAMIDE 5 MG/ML 2 ML VIAL IVP PRN ×3 (02:43→21:50)
[2017-03-25] MEDS: ONDANSETRON 4 MG/2 ML VIAL IVP PRN ×2 (07:17→11:26)
[2017-03-25] MEDS: PANTOPRAZOLE 40 MG TABLET PO SCH (08:00)
[2017-03-25] MEDS: sulfaSALAzine 500 MG TAB PO SCH ×4 (08:01→21:43)
[2017-03-25] MEDS: predniSONE 20 MG TAB PO SCH (08:01)
--- NOTE | 2017-03-25 09:44 | PN ---
PROGRESS NOTE DATE OF SERVICE: 03/24/17. REQUESTING PHYSICIAN: Dr. Bautista. The patient is a 36-year-old white male diagnosed with ulcerative colitis/proctosigmoiditis by Dr. Barraza recently and he was admitted to the hospital with exacerbation of colitis. He was treated with IV steroids and was changed to prednisone 40 mg daily. He complains of lower abdominal pain with 3-4 bowel movements with blood and mucus in the stool. Denies any fever, chills, or night sweats. He reports no nausea, vomiting. PHYSICAL EXAMINATION: Appears comfortable in no apparent distress. VITAL SIGNS: Stable. Blood pressure 127/75, pulse 76, temperature 98.4. HEENT examination unremarkable. Conjunctivae pink. Sclerae anicteric. Oral cavity no lesions. Neck no jugular venous distention or lymph node enlargement. The chest was clear to auscultation. HEART: Regular rate and rhythm. ABDOMEN: Soft. Minimal tenderness in the left lower quadrant area. Bowel sounds are positive. No organomegaly. Extremities: No pedal edema. Skin no rashes. Neuro: He is alert and oriented x3. No focal deficits. LABS: No labs from today. IMPRESSION: Exacerbation of ulcerative colitis (proctosigmoiditis). The patient was treated with IV steroids and presently on prednisone 40 mg daily. He is having about 3 bowel movements loose with a small amount of blood and mucus in the stool. He is also on Azulfidine 1 g 4 times daily. RECOMMENDATIONS: 1. Continue with prednisone 40 mg daily and patient was advised to taper it by 5 mg every week on an outpatient basis. 2. Continue with Azulfidine 1 gm 4 times daily. 3. We will add mesalamine enema once at bedtime. 4. The patient will be discharged home today with an outpatient follow up in [address] Bautista. MMLORL / IJN: [id number] /
--- NOTE | 2017-03-25 12:59 | PN ---
PROGRESS NOTE DATE OF SERVICE: 03/25/2017. CHIEF COMPLAINT: Abdominal pain. HISTORY OF PRESENT ILLNESS: This gentleman is not doing much better. He is still having quite a bit of left-sided abdominal pain. He has had no fever or chills. He is now passing some loose bloody stool. PHYSICAL EXAM: He is still quite tender in the left side of the abdomen. There are no masses. Chest is clear and cardiac exam is normal. IMPRESSION: Ulcerative colitis. PLAN: Continue current program and await recommendations from Gastroenterology. MMODL / IJN: [id number] /
--- NOTE | 2017-03-25 13:05 | DS ---
DISCHARGE SUMMARY CHIEF COMPLAINT: Abdominal pain. HISTORY OF PRESENT ILLNESS AND PHYSICAL EXAM: Details of this man's history and physical can be found in the initial workup. COURSE IN HOSPITAL: After admission he was placed on bedrest, started on intravenous fluids and steroids. He was seen by Gastroenterology. Despite treatment efforts, he continued to have significant amounts of left-sided abdominal pain. However, he seemed to be stable, eating and passing stool and flatus and Gastroenterology felt that he could go home on 03/25. He will go home on light, soft, bland diet and activity as tolerated and he will be kept on steroids as prescribed by Gastroenterology. Will see him in several days and also follow up with Gastroenterology. FINAL DIAGNOSES: Acute exacerbation of ulcerative colitis. OPERATIONS: None. CONSULTATIONS: Gastroenterology. He is improved. MMLORL / BOGDANN: [id number] /
[2017-03-25] MEDS ORDERED: ACETAMINOPHEN TAB 325 MG TAB PO PRN (15:40)
[2017-03-25] MEDS: OSELTAMIVIR 75 MG CAP PO SCH (21:43)
[2017-03-25] MEDS: MESALAMINE 4 GM/60 ML ENEMA RECTAL SCH (22:44)
[2017-03-26] MEDS: ONDANSETRON 4 MG/2 ML VIAL IVP PRN (01:00)
[2017-03-26] MEDS: HYDROmorphone 4 MG TABLET PO PRN ×5 (01:00→21:19)
[2017-03-26] MEDS: OSELTAMIVIR 75 MG CAP PO SCH ×2 (08:07→21:11)
[2017-03-26] MEDS: sulfaSALAzine 500 MG TAB PO SCH ×4 (08:07→21:11)
[2017-03-26] MEDS: predniSONE 20 MG TAB PO SCH (08:07)
[2017-03-26] MEDS: PANTOPRAZOLE 40 MG TABLET PO SCH (08:07)
--- NOTE | 2017-03-26 09:54 | PN ---
PROGRESS NOTE DATE OF SERVICE: 03/26/2017. REFERRING PHYSICIAN: Dr. Bautista. HISTORY: The patient is a 36-year-old white male with history of newly diagnosed ulcerative colitis (proctosigmoiditis), was admitted to hospital with exacerbation of ulcerative colitis. He is presently on prednisone 40 mg daily and is doing better. Last night, because of ongoing bleeding, he was started on mesalamine enema once at bedtime and this morning he is feeling much better. However, he was diagnosed with influenza and hence is on isolation. He complains of body aches and some congestion. He had only 2 bowel movements with no bleeding so far. PHYSICAL EXAMINATION: Appears comfortable, no apparent distress. VITAL SIGNS: Stable. Blood pressure is 133/85, pulse 89, temperature 96. HEENT: Examination unremarkable. Conjunctivae pink. Sclerae anicteric. Oral cavity no lesions. No JVD or lymph node enlargement. CHEST: Clear to auscultation. HEART: Regular rate and rhythm. ABDOMEN: Soft. Bowel sounds are positive. No organomegaly. EXTREMITIES: No pedal edema. SKIN: No rashes. NEUROLOGIC: Alert and oriented x3. No focal deficits. LABS: No labs available from today. Serologies showed influenza A that was positive. IMPRESSION: 1. Ulcerative colitis (proctosigmoiditis) in acute exacerbation, presently on prednisone 40 mg daily and mesalamine enema once at bedtime as well as Azulfidine and doing better. 2. Influenza A diagnosed yesterday. The patient had low-grade fever and body aches, but he is in isolation and doing better. RECOMMENDATIONS: 1. Continue with prednisone 40 mg daily. 2. Continue with mesalamine enema once at bedtime. 3. Continue with Azulfidine 1 gram 4 times daily. 4. Advance diet as tolerated. 5. We will follow him closely. MMODL / IJN: [id number] /
[2017-03-26] MEDS: MESALAMINE 4 GM/60 ML ENEMA RECTAL SCH (21:46)
[2017-03-26 21:51] VITALS: TEMP 98.9
[2017-03-27] MEDS: predniSONE 20 MG TAB PO SCH (07:19)
[2017-03-27] MEDS: sulfaSALAzine 500 MG TAB PO SCH (07:19)
[2017-03-27] MEDS: PANTOPRAZOLE 40 MG TABLET PO SCH (07:19)
[2017-03-27] MEDS: OSELTAMIVIR 75 MG CAP PO SCH (07:19)
[2017-03-27 07:49] VITALS: BP 107/82; PULSE 76; RESP 18
--- NOTE | 2017-03-27 14:37 | PN ---
PROGRESS NOTE DATE OF SERVICE: 03/26/2017. CHIEF COMPLAINT: Colitis and influenza. HISTORY OF PRESENT ILLNESS: This gentleman is still struggling with the influenza. He continues to be achy and have headache. He has had lost of appetite. PHYSICAL EXAM: His chest is clear. The cardiac exam is normal. The abdomen is soft and a little bit tender on the left. IMPRESSION: 1. Colitis. 2. Type A influenza. PLAN: Cancel discharge today and look forward to being able to send him home tomorrow. MMODL / IJN: [id number] /
--- NOTE | 2017-03-27 17:03 | DS ---
DISCHARGE SUMMARY HISTORY: The patient was not discharged yesterday, he will be going home today. He is stable. He will be seen in a few days. FINAL DIAGNOSIS: 1. Exacerbation of ulcerative colitis. 2. Influenza A. MMLORL / BOGDANN: [id number] /
== END 2017-03-27 11:25 | disposition home or self-care (01) | DRG 387 ==
LOC: EC 09:14 → 5MS5E 11:31
PROVIDERS: ADMIT Family Medicine; ATTEND Family Medicine
DX: K51.911 Ulcerative colitis, unspecified with rectal bleeding (principal); J10.1 Influenza due to other identified influenza virus with other respiratory manifestations; Z79.52 Long term (current) use of systemic steroids; Z87.891 Personal history of nicotine dependence; Z79.899 Other long term (current) drug therapy
CPT/HCPCS: 36415; 74018; 74177; 80053; 81003; 82150; 83605; 83690; 85025; 85652; 86140; 87040; 87045; 87046; 87493; 87502; 89055; 96360; 96361; 96374; 96375; 96376; 99285

== ENCOUNTER 2017-03-30 09:21 | Inpatient (IN) | payer OTHER ==
[2017-03-30] MEDS ORDERED: SODIUM CHLORIDE 0.9% 1,000 ML IV STA (10:40)
[2017-03-30] MEDS ORDERED: ONDANSETRON 4 MG/2 ML VIAL IVP STA (10:40)
[2017-03-30] MEDS ORDERED: SODIUM CHLORIDE 0.9% 500 ML IV STA (10:40)
--- NOTE | 2017-03-30 10:46 | ED ---
General Adult HPI - General Chief complaint: Nausea/Vomiting/Diarrhea Stated complaint: Vomiting Time Seen by Provider: 03/30/17 10:00 Source: patient, RN notes reviewed Mode of arrival: ambulatory Limitations: no limitations - History of Present Illness Initial comments: This is a 36-year-old male presents emergency department with a past medical history significant for ulcerative colitis. Patient states been in the hospital twice recently for ulcers colitis. Patient states he cannot get it under control though his medicines have been doubled and he continues to be on steroids he continues to vomit. Patient states his abdominal pain is diffuse. Patient states he has been having diarrhea with some blood in the stool. Patient denies any fever or chills. Patient denies any chest pain difficulty breathing. Patient denies any dysuria hematuria urinary freaky. Patient denies any back pain. - Related Data Home Medications Medication Instructions Recorded Confirmed predniSONE See Taper PO DIRECTED 03/30/17 03/30/17 Previous Rx's Medication Instructions Recorded sulfaSALAzine [Azulfidine] 1,000 mg PO QID #120 tablet 03/23/17 Oseltamivir [Tamiflu] 75 mg PO Q12HR #14 cap 03/27/17 predniSONE 40 mg PO DAILY #10 tab 03/27/17 Allergies Allergy/AdvReac Type Severity Reaction Status Date / Time No Known Allergies Allergy Verified 03/30/17 09:35 Review of Systems ROS Statement: Those systems with pertinent positive or pertinent negative responses have been documented in the HPI. ROS Other: All systems not noted in ROS Statement are negative. Past Medical History Past Medical History: No Reported History Additional Past Medical History / Comment(s): ulcerative colitis History of Any Multi-Drug Resistant Organisms: None Reported Past Surgical History: No Surgical Hx Reported Additional Past Surgical History / Comment(s): colonoscopy Past Anesthesia/Blood Transfusion Reactions: No Reported Reaction Past Psychological History: No Psychological Hx Reported Smoking Status: Former smoker Past Alcohol Use History: None Reported Past Drug Use History: None Reported - Past Family History Mother Family Medical History: No Reported History Father Additional Family Medical History / Comment(s): pacemaker General Exam - General Exam Comments Initial Comments: GENERAL: Patient is well-developed and well-nourished. Patient is nontoxic and well- hydrated and is in mild distress. ENT: Neck is soft and supple. No significant lymphadenopathy is noted. Oropharynx is clear. Moist mucous membranes. Neck has full range of motion without eliciting any pain. EYES: The sclera were anicteric and conjunctiva were pink and moist. Extraocular movements were intact and pupils were equal round and reactive to light. Eyelids were unremarkable. PULMONARY: Unlabored respirations. Good breath sounds bilaterally. No audible rales rhonchi or wheezing was noted. CARDIOVASCULAR: There is a regular rate and rhythm without any murmurs gallops or rubs. ABDOMEN: Mild diffuse abdominal tenderness SKIN: Skin is clear with no lesions or rashes and otherwise unremarkable. NEUROLOGIC: Patient is alert and oriented x3. Cranial nerves II through XII are grossly intact. Motor and sensory are also intact. Normal speech, volume and content. Symmetrical smile. MUSCULOSKELETAL: Normal extremities with adequate strength and full range of motion. LYMPHATICS: No significant lymphadenopathy is noted PSYCHIATRIC: Normal psychiatric evaluation. Limitations: no limitations Course Vital Signs 03/30/17 03/30/17 09:22 12:33 Temperature 97.8 F Pulse Rate 91 77 Respiratory 18 18 Rate Blood Pressure 142/103 137/92 O2 Sat by Pulse 99 99 Oximetry Medical Decision Making - Medical Decision Making KUB is normal. I spoke with Dr. Underwood and it was 1 patient admitted. I admitted the patient I consult to Dr. Whiting - Lab Data Result diagrams: 03/30/17 10:55 03/30/17 10:55 Lab Results 03/30/17 03/30/17 Range/Units 10:55 10:55 WBC 12.4 H (3.8-10.6) k/uL RBC 4.78 (4.30-5.90) m/uL Hgb 14.9 (13.0-17.5) gm/dL Hct 44.6 (39.0-53.0) % MCV 93.2 (80.0-100.0) fL MCH 31.1 (25.0-35.0) pg MCHC 33.4 (31.0-37.0) g/dL RDW 12.6 (11.5-15.5) % Plt Count 243 (150-450) k/uL Neutrophils % 75 % Lymphocytes % 18 % Monocytes % 5 % Eosinophils % 1 % Basophils % 1 % Neutrophils # 9.3 H (1.3-7.7) k/uL Lymphocytes # 2.3 (1.0-4.8) k/uL Monocytes # 0.6 (0-1.0) k/uL Eosinophils # 0.1 (0-0.7) k/uL Basophils # 0.1 (0-0.2) k/uL Sodium 140 (137-145) mmol/L Potassium 4.4 (3.5-5.1) mmol/L Chloride 99 (98-107) mmol/L Carbon Dioxide 31 H (22-30) mmol/L Anion Gap 10 mmol/L BUN 17 (9-20) mg/dL Creatinine 1.10 (0.66-1.25) mg/dL Est GFR (MDRD) Af Amer >60 (>60 ml/min/1.73 sqM) Est GFR (MDRD) Non-Af >60 (>60 ml/min/1.73 sqM) Glucose 115 H (74-99) mg/dL Calcium 9.7 (8.4-10.2) mg/dL Total Bilirubin 1.3 (0.2-1.3) mg/dL AST 26 (17-59) U/L ALT 59 (21-72) U/L Alkaline Phosphatase 59 (38-126) U/L Total Protein 7.3 (6.3-8.2) g/dL Albumin 4.2 (3.5-5.0) g/dL Amylase 56 (30-110) U/L Lipase 113 (23-300) U/L Disposition Clinical Impression: Ulcerative colitis, Abdominal pain Disposition: ADMITTED IP TO THIS HOSP Referrals: Stas Bautista MD [Primary Care Provider] - 1-2 days Time of Disposition: 13:01
[2017-03-30 11:12] LABS: Basophils # (A) 0.1 k/uL (0-0.2); Basophils % (A) 1 %; Eosinophils # (A) 0.1 k/uL (0-0.7); Eosinophils % (A) 1 %; HCT 44.6 % (39.0-53.0); HGB 14.9 gm/dL (13.0-17.5); Lymphocytes # (A) 2.3 k/uL (1.0-4.8); Lymphocytes % (A) 18 %; MCH 31.1 pg (25.0-35.0); MCHC 33.4 g/dL (31.0-37.0); MCV 93.2 fL (80.0-100.0); Mean Platelet Volume 7.1; Monocytes # (A) 0.6 k/uL (0-1.0); Monocytes % (A) 5 %; Neutrophils # (A) 9.3 k/uL (1.3-7.7); Neutrophils % (A) 75 %; Platelet Count 243 k/uL (150-450); RBC 4.78 m/uL (4.30-5.90); RDW 12.6 % (11.5-15.5); WBC 12.4 k/uL (3.8-10.6)
--- NOTE | 2017-03-30 11:26 | XR ---
EXAMINATION TYPE: XR KUB DATE OF EXAM: 03/30/2017 COMPARISON: NONE HISTORY: abdominal pain TECHNIQUE: One view abdominal series FINDINGS: The osseous structures are intact. The bowel gas pattern is nonspecific. Lung bases are clear. 2 mm calcification upper pole right kidney. IMPRESSION: 1. Nonspecific abdomen. 2. 2 mm upper pole right renal calculus.
[2017-03-30 11:27] LABS: ALT 59 U/L (21-72); AST 26 U/L (17-59); Albumin 4.2 g/dL (3.5-5.0); Alkaline Phosphatase 59 U/L (38-126); Amylase 56 U/L (30-110); Anion Gap 10 mmol/L; Blood Urea Nitrogen 17 mg/dL (9-20); Calcium 9.7 mg/dL (8.4-10.2); Carbon Dioxide 31 mmol/L (22-30); Chloride 99 mmol/L (98-107); Glucose 115 mg/dL (74-99); Lipase 113 U/L (23-300); Potassium 4.4 mmol/L (3.5-5.1); Sodium 140 mmol/L (137-145); Total Bilirubin 1.3 mg/dL (0.2-1.3); Total Protein 7.3 g/dL (6.3-8.2)
[2017-03-30] MEDS ORDERED: SODIUM CHLORIDE 0.9% 1,000 ML IV ONE (13:01)
[2017-03-30] MEDS: ONDANSETRON 4 MG/2 ML VIAL IVP PRN ×2 (14:09→20:23)
[2017-03-30] MEDS: KETOROLAC 30 MG/ML 1 ML VIAL IVP PRN ×3 (14:28→23:57)
[2017-03-30] MEDS: METOCLOPRAMIDE 5 MG/ML 2 ML VIAL IVP SCH ×2 (17:44→23:56)
[2017-03-30] MEDS: sulfaSALAzine 500 MG TAB PO SCH ×2 (18:54→20:24)
[2017-03-30] MEDS: OSELTAMIVIR 75 MG CAP PO SCH (20:24)
[2017-03-31] MEDS: KETOROLAC 30 MG/ML 1 ML VIAL IVP PRN ×5 (04:17→21:51)
[2017-03-31] MEDS: ONDANSETRON 4 MG/2 ML VIAL IVP PRN ×2 (04:17→15:33)
[2017-03-31] MEDS: METOCLOPRAMIDE 5 MG/ML 2 ML VIAL IVP SCH ×4 (06:32→23:48)
[2017-03-31] MEDS: sulfaSALAzine 500 MG TAB PO SCH ×4 (07:27→23:34)
[2017-03-31] MEDS: OSELTAMIVIR 75 MG CAP PO SCH ×2 (07:27→21:51)
[2017-03-31] MEDS: predniSONE 20 MG TAB PO SCH (07:27)
--- NOTE | 2017-03-31 09:24 | P.CONS ---
History of Present Illness - Reason for Consult Consult date: 03/31/17 Ulcerative colitis Requesting physician: Stas Bautista - Chief Complaint rectal bleeding, nausea, vomiting - History of Present Illness 36-year-old male recently admitted 2 weeks ago with influenza A, rectal bleeding abdominal pain secondary to mild exacerbation of ulcerative colitis. He reports being diagnosed with ulcerative colitis in November 2016 via colonoscopy performed by Dr. Barraza and placed on low-dose steroids for several weeks. Colonoscopy report was reviewed on previous admission with evidence of proctosigmoiditis. He was discharged with prednisone taper, Azulfidine 1 g 4 times a day as well as mesalamine enema once at bedtime. He was advised to follow with the GI office April 13 secondary to change in insurance. Readmitted with reports of multiple daily bowel movements that are blood tinged with diffuse lower abdominal discomfort nausea and nonbloody emesis. No bloody bowel movements have been witnessed since admission. Hemoglobin 14.9. Discharge hemoglobin 10 days ago ago was 12.9. CT abdomen and pelvis last admission reported left-sided colon/rectal inflammation colitis. No fevers. No recent antibiotics. Sed rate and CRP 10 days ago were within normal limits. Current white count is 12.4. Platelet 243. LFTs within normal limits. BUN 17. Creatinine 1.1. Sodium 140. Potassium 4.4. Lipase 113. Review of Systems Constitutional: Denies fever, chills, sweats, weight gain, or loss. HEENT: Negative for migraines, blurred vision or loss, earaches, drainage, tinnitus, oral mucosal lesions, dysphagia, or odynophagia. Cardiac: Negative for chest pain, arrhythmias, or palpitation. Respiratory: Negative for shortness of breath, hemoptysis, cough, or sputum production. Gastrointestinal: See HPI for pertinent findings. Genitourinary: Negative for hematuria, urgency, frequency, polyuria, dysuria, or penile discharge. Musculoskeletal: Negative for muscle aches, swelling, arthritis, and arthralgias. Neurologic: Negative for stroke or TIA. Endocrine: Negative for thyroid problems. Skin: Negative for rash or itching. Psychiatric: Negative history for depression and anxiety Past Medical History Past Medical History: No Reported History Additional Past Medical History / Comment(s): ulcerative colitis History of Any Multi-Drug Resistant Organisms: None Reported Past Surgical History: No Surgical Hx Reported Additional Past Surgical History / Comment(s): colonoscopy Past Anesthesia/Blood Transfusion Reactions: No Reported Reaction Past Psychological History: No Psychological Hx Reported Additional Psychological History / Comment(s): lives with mom and step dad. no service. works for [employer], is independant. no home services , no medical equipment. drives. Smoking Status: Former smoker Past Alcohol Use History: None Reported Additional Past Alcohol Use History / Comment(s): started smoking at age 14 smoked 1 ppd, quit Past Drug Use History: None Reported Additional Drug Use History / Comment(s): occ use of marijuana-last used 2 days ago - Past Family History Mother Family Medical History: No Reported History Father Additional Family Medical History / Comment(s): pacemaker Medications and Allergies Home Medications Medication Instructions Recorded Confirmed Type sulfaSALAzine [Azulfidine] 1,000 mg PO QID #120 tablet 03/23/17 03/30/17 Rx Oseltamivir [Tamiflu] 75 mg PO Q12HR #14 cap 03/27/17 03/30/17 Rx predniSONE 40 mg PO DAILY #10 tab 03/27/17 03/30/17 Rx predniSONE See Taper PO DIRECTED 03/30/17 03/30/17 History Allergies Allergy/AdvReac Type Severity Reaction Status Date / Time No Known Allergies Allergy Verified 03/30/17 09:35 Physical Exam Vitals: Vital Signs Temp Pulse Pulse Resp BP BP Pulse Ox 03/31/17 07:00 98.1 F 71 16 106/65 96 03/31/17 00:00 18 03/30/17 23:00 98.0 F 68 18 128/73 97 03/30/17 18:53 98.3 F 65 16 133/79 97 03/30/17 18:35 98.1 F 88 20 115/69 98 03/30/17 17:32 83 20 123/74 98 03/30/17 14:12 86 18 129/89 98 03/30/17 12:33 77 18 137/92 99 03/30/17 09:22 97.8 F 91 18 142/103 99 Intake and Output 03/30/17 03/31/17 03/31/17 22:59 06:59 14:59 Intake Total 0 0 Balance 0 0 Intake: Oral 0 0 Other: Voiding Method Toilet # Voids 1 1 # Bowel Movements 1 General appearance: The patient is alert, oriented, in no acute distress. HET: Head is normocephalic and atraumatic. Pupils are equal and reactive. Oropharynx is clear without lesions. Neck: Supple without lymphadenopathy. Trachea midline. Heart: S1 S2. Regular rate and rhythm. Lungs: No crackles or wheezes are heard. Abdomen: Soft, mild tenderness bilateral lower abdomen greater than left and right, nondistended with bowel sounds. No peritoneal signs. No palpable organomegaly or masses. Extremities: Normal skin color and turgor. No cyanosis, rash, ulceration, clubbing, or edema. Radial and pedal pulses are 2/4 bilaterally. Neurological: No focal deficits. Strength and sensation are grossly intact. Results CBC & Chem 7: 03/30/17 10:55 03/30/17 10:55 Labs: Abnormal Lab Results - Last 24 Hours (Table) 03/30/17 03/30/17 Range/Units 10:55 10:55 WBC 12.4 H (3.8-10.6) k/uL Neutrophils # 9.3 H (1.3-7.7) k/uL Carbon Dioxide 31 H (22-30) mmol/L Glucose 115 H (74-99) mg/dL Assessment and Plan (1) Rectal bleeding Narrative/Plan: 36-year-old male with a history of proctosigmoid ulcerative colitis admitted with intractable nausea vomiting lower abdominal pain blood tinged elements consistent with ulcerative colitis exacerbation. Recent hospitalization for mild exacerbation of ulcerative colitis and influenza A. Current Visit: Yes Status: Acute Code(s): K62.5 - HEMORRHAGE OF ANUS AND RECTUM SNOMED Code(s): 66487039 (2) Abdominal pain Current Visit: Yes Status: Acute Code(s): R10.9 - UNSPECIFIED ABDOMINAL PAIN SNOMED Code(s): 45994226 (3) Ulcerative colitis Current Visit: Yes Status: Acute Code(s): K51.90 - ULCERATIVE COLITIS, UNSPECIFIED, WITHOUT COMPLICATIONS SNOMED Code(s): 38841502 (4) Nausea & vomiting Current Visit: Yes Status: Acute Code(s): R11.2 - NAUSEA WITH VOMITING, UNSPECIFIED SNOMED Code(s): 63712956 Plan: 1. Azulfidine 1 g 4 times a day. 2. Mesalamine 4 g enema daily at bedtime. 3. Prednisone 40 mg daily. 4. Clear liquid diet and advance as tolerated. 5. Surgical pathology was requested from Dr. Barraza's office to be placed on chart for review. 6. Secondary to insurance change April 13 patient was advised to notify GI office April 13 to schedule appointment for reevaluation. 7. Pepcid 20 mg IV twice daily. 8. Patient has been placed on Tamiflu 75 mg every 12 hours. 9. Isolation contact. 10. Inpatient endoscopic exams not planned at this time. Thank you for this kind referral and the opportunity to participate in the care of your patient. This consultation was discussed with Dr. Esteban. The impression and plan of care have been directed as dictated.
[2017-03-31] MEDS: FAMOTIDINE 20 MG/2 ML VIAL IV SCH ×2 (10:04→21:50)
[2017-03-31 14:43] VITALS: BMI 23.8
--- NOTE | 2017-03-31 15:52 | HP ---
HISTORY AND PHYSICAL CHIEF COMPLAINT: Abdominal pain. HISTORY OF PRESENT ILLNESS: This is another admission for this 36-year-old white male who came back to the emergency room with acute abdominal pain. He has been being treated for ulcerative colitis. While in the emergency room, the family came up to the staff asking them not to give the patient narcotics because he is an abuser. REVIEW OF SYSTEMS: He has had no fever, vomiting, diarrhea, hematochezia, etc. PAST MEDICAL HISTORY: Past medical history, family history, personal history are all otherwise unremarkable or unchanged. He is not allergic to any medication. He has been staying on the medications that were prescribed by Gastroenterology. PHYSICAL EXAMINATION: Blood pressure is 130/90 with a pulse of 106. Respirations of 38 and temperature is 97.4. GENERAL: He appeared to be uncomfortable. Skin color is normal. Skin is warm, dry and lymph nodes not enlarged. Head, ears, eyes, nose, mouth, and throat were normal. Neck veins not distended. Thyroid not enlarged. CHEST: Clear cardiac exam is normal. The abdomen is soft on the right and tender on the left. No masses or visceromegaly. Bowel sounds present. Extremities normal. Neurological is intact. IMPRESSION: 1. Ulcerative colitis. 2. History of analgesic abuse. PLAN: 1. Bed rest. 2. IV fluids. 3. Nonnarcotic analgesia. 4. Gastroenterology consult. MMODL / IJN: [id number] /
--- NOTE | 2017-03-31 16:07 | PN ---
PROGRESS NOTE CHIEF COMPLAINT: Abdominal pain. HISTORY OF PRESENT ILLNESS: This gentleman still complaining abdominal pain and wants something stronger in terms of analgesic. PHYSICAL EXAM: He is afebrile. His abdomen is slightly tender on the left. Cardiac exam is normal. Chest is clear. Bowel sounds present. IMPRESSION: 1. Abdominal pain. 2. Ulcerative colitis. PLAN: Await recommendations from Gastroenterology. MMODL / IJN: [id number] /
[2017-03-31] MEDS: MESALAMINE 4 GM/60 ML ENEMA RECTAL SCH (21:51)
[2017-04-01] MEDS: KETOROLAC 30 MG/ML 1 ML VIAL IVP PRN ×3 (05:29→20:39)
[2017-04-01] MEDS: METOCLOPRAMIDE 5 MG/ML 2 ML VIAL IVP SCH ×4 (05:30→23:53)
[2017-04-01] MEDS: predniSONE 20 MG TAB PO SCH (08:00)
[2017-04-01] MEDS: sulfaSALAzine 500 MG TAB PO SCH ×4 (08:00→20:42)
[2017-04-01] MEDS: FAMOTIDINE 20 MG/2 ML VIAL IV SCH ×2 (08:00→21:06)
[2017-04-01] MEDS: OSELTAMIVIR 75 MG CAP PO SCH ×2 (08:00→20:41)
[2017-04-01] MEDS: ONDANSETRON 4 MG/2 ML VIAL IVP PRN ×2 (09:32→20:40)
--- NOTE | 2017-04-01 14:32 | PN ---
PROGRESS NOTE DATE OF SERVICE: 04/01/17 CHIEF COMPLAINT: Exacerbation of ulcerative colitis. HISTORY OF PRESENT ILLNESS: This gentleman is doing just about the same and is complaining of the same. He has had no fever or chills or vomiting. PHYSICAL EXAM: Abdomen still is generally tender, particularly on the left. Bowel sounds are present. IMPRESSION: Ulcerative colitis. PLAN: Continue to follow recommendations of Gastroenterology. MMODL / IJN: [id number] /
[2017-04-01] MEDS: MESALAMINE 4 GM/60 ML ENEMA RECTAL SCH (21:08)
[2017-04-02] MEDS: METOCLOPRAMIDE 5 MG/ML 2 ML VIAL IVP SCH ×3 (06:21→17:41)
[2017-04-02] MEDS: KETOROLAC 30 MG/ML 1 ML VIAL IVP PRN ×2 (07:55→21:49)
[2017-04-02] MEDS: ONDANSETRON 4 MG/2 ML VIAL IVP PRN ×2 (07:55→21:45)
[2017-04-02] MEDS: sulfaSALAzine 500 MG TAB PO SCH ×4 (07:56→21:46)
[2017-04-02] MEDS: OSELTAMIVIR 75 MG CAP PO SCH ×2 (07:56→21:45)
[2017-04-02] MEDS: predniSONE 20 MG TAB PO SCH (07:56)
[2017-04-02] MEDS: FAMOTIDINE 20 MG/2 ML VIAL IV SCH ×2 (07:56→21:45)
[2017-04-02] MEDS: MESALAMINE 4 GM/60 ML ENEMA RECTAL SCH (21:44)
[2017-04-03] MEDS: METOCLOPRAMIDE 5 MG/ML 2 ML VIAL IVP SCH ×3 (00:39→12:08)
[2017-04-03 03:34] VITALS: RESP 18
[2017-04-03 07:37] VITALS: BP 112/70; PULSE 72; TEMP 98.8
[2017-04-03] MEDS: predniSONE 20 MG TAB PO SCH (08:38)
[2017-04-03] MEDS: FAMOTIDINE 20 MG/2 ML VIAL IV SCH (08:38)
[2017-04-03] MEDS: OSELTAMIVIR 75 MG CAP PO SCH (08:38)
[2017-04-03] MEDS: sulfaSALAzine 500 MG TAB PO SCH ×2 (08:38→12:08)
[2017-04-03] MEDS: ONDANSETRON 4 MG/2 ML VIAL IVP PRN (09:29)
--- NOTE | 2017-04-03 14:44 | PN ---
PROGRESS NOTE DATE OF SERVICE: 04/02/17 CHIEF COMPLAINT: Ulcerative colitis. HISTORY OF PRESENT ILLNESS: This gentleman seems to be doing better. He is not running any fever and he is not vomiting. PHYSICAL EXAM: CHEST: Clear. Cardiac exam is normal. The abdomen is slightly tender in the left side. Bowel sounds present. IMPRESSION: Ulcerative colitis-improving. PLAN: Await further recommendations regarding discharge from GI. MMODL / IJN: [id number] /
--- NOTE | 2017-04-03 22:17 | DS ---
DISCHARGE SUMMARY CHIEF COMPLAINT: Ulcerative colitis. HISTORY OF PRESENT ILLNESS/PHYSICAL EXAMINATION: Details of this man's history and physical can be found in the initial workup. LABORATORY STUDIES: While he was in a hospital he had laboratory studies details of which can be found in the laboratory section of his chart. COURSE IN THE HOSPITAL: After admission he was placed on bedrest, started on intravenous fluids and seen by Gastroenterology. Treatment was instituted and he started to improve. His family indicates that became he abuses narcotics and these were withheld. He was doing better and then he signed himself out AGAINST MEDICAL ADVICE on the . He was given no discharge prescriptions, followup appointment, instructions, etc. FINAL DIAGNOSES: 1. Exacerbation of ulcerative colitis. 2. Narcotic abuse. OPERATIONS: None. CONSULTATIONS: Gastroenterology. He is improved. MMODL / IJN: [id number] /
== END 2017-04-03 13:07 | disposition left against medical advice (07) | DRG 387 ==
LOC: EC 09:21 → 4MS4W 13:01
PROVIDERS: ADMIT Family Medicine; ATTEND Family Medicine
DX: K51.90 Ulcerative colitis, unspecified, without complications (principal); F11.10 Opioid abuse, uncomplicated; Z53.21 Procedure and treatment not carried out due to patient leaving prior to being seen by health care provider; R11.2 Nausea with vomiting, unspecified; Z87.891 Personal history of nicotine dependence; F12.90 Cannabis use, unspecified, uncomplicated; Z79.899 Other long term (current) drug therapy; Z79.52 Long term (current) use of systemic steroids
CPT/HCPCS: 36415; 74018; 80053; 82150; 83690; 85025; 96360; 96361; 96374; 96375; 96376; 99285

== ENCOUNTER → 2017-05-01 | Outpatient (CLI) | payer OTHER ==
[2017-05-01 11:27] LABS: Basophils % (A) 0 %; Eosinophils % (A) 1 %; HCT 40.7 % (39.0-53.0); HGB 13.7 gm/dL (13.0-17.5); Lymphocytes # (A) 0.6 k/uL (1.0-4.8); Lymphocytes % (A) 7 %; MCH 32.3 pg (25.0-35.0); MCHC 33.7 g/dL (31.0-37.0); MCV 95.8 fL (80.0-100.0); Mean Platelet Volume 6.9; Monocytes # (A) 0.3 k/uL (0-1.0); Monocytes % (A) 3 %; Neutrophils % (A) 89 %; Platelet Count 226 k/uL (150-450); RBC 4.24 m/uL (4.30-5.90); RDW 13.4 % (11.5-15.5)
[2017-05-01 12:11] LABS: ALT 44 U/L (21-72); AST 28 U/L (17-59); Albumin 4.2 g/dL (3.5-5.0); Alkaline Phosphatase 48 U/L (38-126); Anion Gap 10 mmol/L; Blood Urea Nitrogen 12 mg/dL (9-20); C Reactive Protein <5.0 mg/L (<10.0); Calcium 9.9 mg/dL (8.4-10.2); Carbon Dioxide 29 mmol/L (22-30); Chloride 100 mmol/L (98-107); Glucose 96 mg/dL (74-99); Potassium 3.8 mmol/L (3.5-5.1); Sodium 139 mmol/L (137-145); Total Bilirubin 0.5 mg/dL (0.2-1.3); Total Protein 6.9 g/dL (6.3-8.2)
[2017-05-01 13:11] LABS: Erythrocyte Sedimentation Rate 7 mm/hr (0-15)
[2017-05-01 16:49] LABS: Hepatitis B Surface AB- Quant 3.5 mIU/mL
== END | disposition home or self-care (01) ==
LOC: LABWHC1 10:38
PROVIDERS: ATTEND Internal Medicine Gastroenterology
DX: K51.90 Ulcerative colitis, unspecified, without complications (principal)
CPT/HCPCS: 36415; 80053; 85025; 85652; 86140; 86480; 86704; 86706; 87340

== ENCOUNTER → 2018-06-14 | Outpatient (CLI) | payer OTHER ==
--- NOTE | 2018-06-14 13:11 | US ---
EXAMINATION TYPE: US liver DATE OF EXAM: 06/14/2018 COMPARISON: CT CLINICAL HISTORY: B18.2 Chronic viral hepatitis C. EXAM MEASUREMENTS: Liver Length: 17.4 cm Gallbladder Wall: 0.3 cm CBD: 0.6 cm Right Kidney: 11.9 x 5.6 x 4.1 cm Pancreas: only head was seen; mid and tail was gassed out Liver: wnl Gallbladder: wnl Evidence for sonographic Stacy's sign: no CBD: in supine view size is 0.6 cm Right Kidney: wnl IMPRESSION: Despite the patient's known hepatocellular disease no sonographic sequela of hepatocellul ar disease/cirrhosis is seen at this time. No focal hepatic lesion is appreciated.
== END | disposition home or self-care (01) ==
LOC: RADUSWWP 09:03
PROVIDERS: ATTEND Internal Medicine Gastroenterology
DX: B18.2 Chronic viral hepatitis C (principal)
CPT/HCPCS: 76705

== ENCOUNTER → 2018-06-28 | Outpatient (CLI) | payer OTHER ==
[2018-06-28 23:26] LABS: Albumin 5.1 g/dL (3.80-4.90); Albumin/Globulin Ratio 2.04 (1.60-3.17); Anion Gap 10.6 mmol/L (4.00-12.00); Carbon Dioxide 23.4 mmol/L (21.6-31.8); Globulin 2.5 g/dL (1.6-3.3); Potassium 4.4 mmol/L (3.5-5.5); Total Bilirubin 0.9 mg/dL (0.3-1.2); Total Protein 7.6 g/dL (6.2-8.2)
== END | disposition home or self-care (01) ==
LOC: LABWHC1 15:52
PROVIDERS: ATTEND Internal Medicine Gastroenterology
DX: B18.2 Chronic viral hepatitis C (principal)
CPT/HCPCS: 36415; 80053; 87522

== ENCOUNTER 2019-03-29 11:06 | Emergency (ER) | payer OTHER ==
[2019-03-29] MEDS ORDERED: SODIUM CHLORIDE 0.9% 1,000 ML IV STA (11:15)
[2019-03-29 11:35] LABS: Basophils # (A) 0.1 k/uL (0-0.2); Basophils % (A) 1 %; Eosinophils # (A) 0.1 k/uL (0-0.7); Eosinophils % (A) 2 %; HCT 45.9 % (39.0-53.0); HGB 15.3 gm/dL (13.0-17.5); Lymphocytes # (A) 1.2 k/uL (1.0-4.8); Lymphocytes % (A) 15 %; MCH 33.1 pg (25.0-35.0); MCHC 33.3 g/dL (31.0-37.0); MCV 99.5 fL (80.0-100.0); Mean Platelet Volume 8.3; Monocytes # (A) 0.4 k/uL (0-1.0); Monocytes % (A) 5 %; Neutrophils # (A) 6.1 k/uL (1.3-7.7); Neutrophils % (A) 75 %; Platelet Count 268 k/uL (150-450); RBC 4.61 m/uL (4.30-5.90); RDW 12.9 % (11.5-15.5); WBC 8.1 k/uL (3.8-10.6)
--- NOTE | 2019-03-29 11:36 | ED ---
General Adult HPI - General Chief complaint: Arrhythmia/Palpitations Stated complaint: SVT Time Seen by Provider: 03/29/19 11:08 Source: patient Mode of arrival: EMS Limitations: no limitations - History of Present Illness Initial comments: Dictation was produced using [employer] dictation software. please excuse any grammatical, word or spelling errors. Chief Complaint: 38-year-old male brought in by EMS for SVT. History of Present Illness: It is a 38-year-old male who has past medical history of ulcerative colitis. Patient states that he was at home. He was on the couch when he suddenly stood up and began experiencing palpitations. Patient states he's had palpitations past. Most recent episode of palpitations was several months ago. States that he's had palpitations before and would only last for a couple minutes. He did experience some chest pain along with these palpitations. The episode that occurred today was longer than he is used to. Patient is a alcohol user. EMS was called and patient was noted to be in sup raventricular tachycardia. EMS attempted vagal maneuvers with no success. He was given 6 mg of IV adenosine. Patient then converted. EMS provided patient with aspirin for chest pain. Patient at bedside feels completely normal at this time. Denies any chest pain shortness of breath at this time. The ROS documented in this emergency department record has been reviewed and confirmed by me. Those systems with pertinent positive or negative responses have been documented in the HPI. All other systems are other negative and/or noncontributory. PHYSICAL EXAM: General Impression: Alert and oriented x3, not in acute distress HEENT: Normocephalic atraumatic, extra-ocular movements intact, pupils equal and reactive to light bilaterally, mucous membranes moist. Cardiovascular: Heart regular rate and rhythm, S1&S2 audible, no murmurs, rubs or gallops Chest: Lungs clear to auscultation bilaterally, no rhonchi, no wheeze, no rales Abdomen: Bowel sounds present, abdomen soft, non-tender, non-distended, no organomegaly Musculoskeletal: Pulses present and equal in all extremities, no peripheral edema Motor: no focal deficits noted Neurological: CN II-XII grossly intact, no focal motor or sensory deficits noted Skin: Intact with no visualized rashes Psych: Normal affect and mood ED course: 38-year-old male presents after episode of SVT. SVT was chemically cardioverted by EMS prior to arrival. Patient evaluated at bedside with stable medical condition. He has no complaints at this time. As upon arrival are within acceptable limits. Patient observed in emergency department for couple hours. No recurrence of tachycardia or SVT. Laboratory evaluation resulted. CBC unremarkable. Coag panel unremarkable. Metabolic panel shows mild anion gap acidosis is likely secondary from episode of palpitations. Glucose 140. Elevated liver enzymes with AST of 295 and ALT of 291. Patient is alcoholic. This is likely secondary to alcoholic hepatitis. TSH within acceptable limits. Chest x-ray is nonacute. Patient reevaluated bedside with stable medical condition. He is no complaints at this time. Patient is not tachycardic. He will be discharged with outpatient referral to cardiology. Patient to return to emergency department should he have a recurrent episode of palpitations. Patient is understandable and agreeable to discharge. EKG interpretation: Ventricular rate 97, normal sinus rhythm, KS interval 164, QRS 76, QTC 464. No KS prolongation, no QTC prolongation, no ST or T-wave changes noted. Overall, this EKG is unremarkable - Related Data Home Medications Medication Instructions Recorded Confirmed Acetaminophen [Tylenol] 325 mg PO Q4H PRN 03/29/19 03/29/19 Cariprazine HCl [Vraylar] 1.5 mg PO DIRECTED 03/29/19 03/29/19 Cariprazine HCl [Vraylar] 3 mg PO HS 03/29/19 03/29/19 hydrOXYzine HCL [Atarax] 25 mg PO QID PRN 03/29/19 03/29/19 predniSONE See Taper PO DAILY 03/29/19 03/29/19 sulfaSALAzine [Azulfidine] 1,000 mg PO QID 03/29/19 03/29/19 Allergies Allergy/AdvReac Type Severity Reaction Status Date / Time No Known Allergies Allergy Verified 03/29/19 11:18 Review of Systems ROS Statement: Those systems with pertinent positive or pertinent negative responses have been documented in the HPI. ROS Other: All systems not noted in ROS Statement are negative. Past Medical History Past Medical History: No Reported History Additional Past Medical History / Comment(s): ulcerative colitis History of Any Multi-Drug Resistant Organisms: None Reported Past Surgical History: No Surgical Hx Reported Additional Past Surgical History / Comment(s): colonoscopy Past Anesthesia/Blood Transfusion Reactions: No Reported Reaction Past Psychological History: No Psychological Hx Reported Smoking Status: Former smoker Past Alcohol Use History: None Reported Past Drug Use History: Marijuana - Past Family History Mother Family Medical History: No Reported History Father Additional Family Medical History / Comment(s): pacemaker General Exam Limitations: no limitations Course Vital Signs 03/29/19 11:14 Temperature 98.0 F Pulse Rate 97 Respiratory 12 Rate Blood Pressure 129/80 O2 Sat by Pulse 97 Oximetry Medical Decision Making - Lab Data Result diagrams: 03/29/19 11:23 03/29/19 11:23 Lab Results 03/29/19 03/29/19 03/29/19 Range/Units 11:23 11:23 11:23 WBC 8.1 (3.8-10.6) k/uL RBC 4.61 (4.30-5.90) m/uL Hgb 15.3 (13.0-17.5) gm/dL Hct 45.9 (39.0-53.0) % MCV 99.5 (80.0-100.0) fL MCH 33.1 (25.0-35.0) pg MCHC 33.3 (31.0-37.0) g/dL RDW 12.9 (11.5-15.5) % Plt Count 268 (150-450) k/uL Neutrophils % 75 % Lymphocytes % 15 % Monocytes % 5 % Eosinophils % 2 % Basophils % 1 % Neutrophils # 6.1 (1.3-7.7) k/uL Lymphocytes # 1.2 (1.0-4.8) k/uL Monocytes # 0.4 (0-1.0) k/uL Eosinophils # 0.1 (0-0.7) k/uL Basophils # 0.1 (0-0.2) k/uL PT 11.1 (9.0-12.0) sec INR 1.1 (<1.2) APTT 22.5 (22.0-30.0) sec Sodium 140 (137-145) mmol/L Potassium 3.6 (3.5-5.1) mmol/L Chloride 107 (98-107) mmol/L Carbon Dioxide 18 L (22-30) mmol/L Anion Gap 15 mmol/L BUN 9 (9-20) mg/dL Creatinine 1.22 (0.66-1.25) mg/dL Est GFR (CKD-EPI)AfAm 86 (>60 ml/min/1.73 sqM) Est GFR (CKD-EPI)NonAf 74 (>60 ml/min/1.73 sqM) Glucose 140 H (74-99) mg/dL Calcium 10.0 (8.4-10.2) mg/dL Magnesium 1.6 (1.6-2.3) mg/dL Total Bilirubin 1.6 H (0.2-1.3) mg/dL AST 295 H (17-59) U/L ALT 291 H (4-49) U/L Alkaline Phosphatase 83 (38-126) U/L Troponin I (0.000-0.034) ng/mL Total Protein 8.8 H (6.3-8.2) g/dL Albumin 5.1 H (3.5-5.0) g/dL TSH 1.550 (0.465-4.680) mIU/L 03/29/19 Range/Units 11:23 WBC (3.8-10.6) k/uL RBC (4.30-5.90) m/uL Hgb (13.0-17.5) gm/dL Hct (39.0-53.0) % MCV (80.0-100.0) fL MCH (25.0-35.0) pg MCHC (31.0-37.0) g/dL RDW (11.5-15.5) % Plt Count (150-450) k/uL Neutrophils % % Lymphocytes % % Monocytes % % Eosinophils % % Basophils % % Neutrophils # (1.3-7.7) k/uL Lymphocytes # (1.0-4.8) k/uL Monocytes # (0-1.0) k/uL Eosinophils # (0-0.7) k/uL Basophils # (0-0.2) k/uL PT (9.0-12.0) sec INR (<1.2) APTT (22.0-30.0) sec Sodium (137-145) mmol/L Potassium (3.5-5.1) mmol/L Chloride (98-107) mmol/L Carbon Dioxide (22-30) mmol/L Anion Gap mmol/L BUN (9-20) mg/dL Creatinine (0.66-1.25) mg/dL Est GFR (CKD-EPI)AfAm (>60 ml/min/1.73 sqM) Est GFR (CKD-EPI)NonAf (>60 ml/min/1.73 sqM) Glucose (74-99) mg/dL Calcium (8.4-10.2) mg/dL Magnesium (1.6-2.3) mg/dL Total Bilirubin (0.2-1.3) mg/dL AST (17-59) U/L ALT (4-49) U/L Alkaline Phosphatase (38-126) U/L Troponin I <0.012 (0.000-0.034) ng/mL Total Protein (6.3-8.2) g/dL Albumin (3.5-5.0) g/dL TSH (0.465-4.680) mIU/L Disposition Clinical Impression: SVT (supraventricular tachycardia) Disposition: HOME SELF-CARE Instructions (If sedation given, give patient instructions): Heart Palpitations (ED), Supraventricular Tachycardia (ED) Additional Instructions: You had an episode of supraventricular tachycardia. There are multiple triggers to this type of abnormal heart rhythm. Please avoid dehydration, excessive alcohol use, excessive caffeine, ingestion of stimulants. Please consume a well-balanced diet. Follow up with cardiology as instructed. Return to emergency Department with any recurrent symptoms. Is patient prescribed a controlled substance at d/c from ED?: No Referrals: Robert Doran MD [STAFF PHYSICIAN] - 1-2 days Time of Disposition: 12:31
--- NOTE | 2019-03-29 11:40 | XR ---
EXAMINATION TYPE: XR chest 2V DATE OF EXAM: 03/29/2019 COMPARISON: NONE HISTORY: Tachycardia TECHNIQUE: Frontal and lateral views of the chest are obtained. FINDINGS: There is no focal air space opacity, pleural effusion, or pneumothorax seen. The cardiac silhouette size is within normal limits. The osseous structures are intact. IMPRESSION: No acute cardiopulmonary process.
[2019-03-29 11:44] LABS: Albumin 5.1 g/dL (3.5-5.0); Magnesium 1.6 mg/dL (1.6-2.3); Potassium 3.6 mmol/L (3.5-5.1); Total Bilirubin 1.6 mg/dL (0.2-1.3); Total Protein 8.8 g/dL (6.3-8.2)
[2019-03-29 11:52] LABS: INR 1.1 (<1.2); Partial Thromboplastin Time 22.5 sec (22.0-30.0); Prothrombin Time 11.1 sec (9.0-12.0)
[2019-03-29 13:19] VITALS: BP 123/90; PULSE 90; RESP 16; TEMP 97.9
== END 2019-03-29 12:45 | disposition home or self-care (01) ==
LOC: EC 11:06
DX: I47.1 Supraventricular tachycardia (principal); E87.2 Acidosis; R74.8 Abnormal levels of other serum enzymes; Z79.899 Other long term (current) drug therapy; Z87.891 Personal history of nicotine dependence; Z87.19 Personal history of other diseases of the digestive system; Z82.49 Family history of ischemic heart disease and other diseases of the circulatory system
CPT/HCPCS: 36415; 71046; 80053; 83735; 84443; 84484; 85025; 85610; 85730; 93005; 96360; 99285

== ENCOUNTER → 2019-12-27 | Outpatient (CLI) | payer OTHER ==
[2019-12-27 09:52] LABS: HCT 46.7 % (39.0-53.0); HGB 15.9 gm/dL (13.0-17.5); MCH 33.3 pg (25.0-35.0); MCHC 34.1 g/dL (31.0-37.0); MCV 97.6 fL (80.0-100.0); Mean Platelet Volume 8.9; Platelet Count 255 k/uL (150-450); RBC 4.78 m/uL (4.30-5.90); RDW 12.7 % (11.5-15.5); WBC 6.4 k/uL (3.8-10.6)
[2019-12-27 10:07] LABS: African American GFR (CKD) >90 (>60 ml/min/1.73 sqM); Anion Gap 7 mmol/L; Blood Urea Nitrogen 14 mg/dL (9-20); Carbon Dioxide 30 mmol/L (22-30); Chloride 103 mmol/L (98-107); Non-African American GFR(CKD) >90 (>60 ml/min/1.73 sqM); Potassium 4.9 mmol/L (3.5-5.1); Sodium 140 mmol/L (137-145)
== END | disposition home or self-care (01) ==
LOC: LABPAT 08:21
PROVIDERS: ATTEND Internal Medicine Clinical Cardiac Electrophysiology
DX: Z01.818 Encounter for other preprocedural examination (principal); R55 Syncope and collapse
CPT/HCPCS: 80051; 82565; 84443; 84520; 85027

== ENCOUNTER 2020-01-21 10:15 | Day surgery (SDC) | payer OTHER ==
[~2020-01-21 10:15] MED LIST: LACTATED RINGERS 1,000 ML IV SCH; SODIUM CHLORIDE 0.9% 1,000 ML IV SCH
[2020-01-21] MEDS ORDERED: SODIUM CHLORIDE 0.9% 1,000 ML IV ONE (10:28)
[2020-01-21] MEDS ORDERED: MIDAZOLAM 2 MG/2 ML VIAL ONE (11:09)
[2020-01-21] MEDS ORDERED: KETAMINE 10 MG/ML 20 ML VIAL ONE (11:09)
[2020-01-21] MEDS ORDERED: PROPOFOL 10 MG/ML 20 ML VIAL IV ONE (11:09)
[2020-01-21] MEDS ORDERED: fentaNYL (PF) 50 MCG/ML 2 ML AMP ONE (11:09)
[2020-01-21] MEDS ORDERED: ISOPROTERENOL 250 MCG/1.25 ML SYR IV ONE (11:09)
[2020-01-21] MEDS ORDERED: LIDOCAINE 1% INJ 10MG/ML (20 ML MDV) ONE (11:22)
--- NOTE | 2020-01-21 11:43 | P.HPCAR ---
History of Present Illness This is Dr. Perez dictating an H/P on this patient The patient was interviewed and examined IMPRESSION / ASSESSMENT: Recurrent palpitations with sweating feeling weak and near syncope as well as nausea Documented SVT, adenosine sensitive Normal TSH Abnormal LFT, hepatitis C Regular alcohol consumption, history of heavy alcohol consumption Breakthrough episodes on metoprolol PLAN: Proceed with EP study and possible ablation HPI Patient has had recurrent palpitations some short and others sustained. The sustained episodes were associated with sweatiness palpitations rapid beating in the neck, feeling weak and almost passing out as well as feeling nauseous In one of his sustained episodes, EMS gave him IV medication that immediately terminated the arrhythmia He continues to have breakthrough episodes on Toprol-XL ROS: No fever chills or rigors, no cough, phlegm or expectoration, no nausea, vomiting or diarrhea, no hematuria, dysuria, no musculoskeletal complaints, no strokes or seizures, no skin lesions. EXAMINATION: Vitals stable, heart rate 72 beats a minute, normal blood pressure Breath sounds are clear no rhonchi no crackles No JVD no bruits Normal S1 normal S2 no murmurs Abdomen soft Eccentric days warm no edema Blood pressure 141/87 mmHg, afebrile 98.3F REVIEW OF LABS, ECG & MEDICAL DATA Past history of heavy alcohol use Physical Exam Vitals: Vital Signs Temp Pulse Resp BP BP Pulse Ox 01/21/20 10:56 98.3 F 85 18 141/87 143/93 98 Intake and Output 01/20/20 01/21/20 01/21/20 22:59 06:59 14:59 Intake Total 100 Balance 100 Intake: IV 100 Other: Weight 101 kg Past Medical History Past Medical History: GERD/Reflux Additional Past Medical History / Comment(s): SEE H & P BY DR. PEREZ. ulcerative colitis History of Any Multi-Drug Resistant Organisms: None Reported Past Surgical History: No Surgical Hx Reported Additional Past Surgical History / Comment(s): colonoscopy Past Anesthesia/Blood Transfusion Reactions: No Reported Reaction Additional Past Anesthesia/Blood Transfusion Reaction / Comment(s): NEVER HAD GENERAL ANESTHESIA Past Psychological History: Bipolar, Depression Smoking Status: Former smoker Past Alcohol Use History: Daily Additional Past Alcohol Use History / Comment(s): started smoking at age 14 smoked 1 ppd, quit . 2 DRINKS PER DAY Past Drug Use History: Marijuana Additional Drug Use History / Comment(s): occ use of marijuana-last used 2 days ago - Past Family History Mother Family Medical History: No Reported History Father Additional Family Medical History / Comment(s): pacemaker Physical Examination Vital Signs Temp Pulse Resp BP BP Pulse Ox 01/21/20 10:56 98.3 F 85 18 141/87 143/93 98 Intake and Output 01/20/20 01/21/20 01/21/20 22:59 06:59 14:59 Intake Total 100 Balance 100 Intake: IV 100 Other: Weight 101 kg Results Current Medications Generic Name Dose Route Start Last Admin Trade Name Freq PRN Reason Stop Dose Admin Sodium Chloride 1,000 mls @ 20 mls/hr 01/21/20 05:59 Saline 0.9% IV .Q24H KEIRA Lactated Ringer's 1,000 mls @ 20 mls/hr 01/21/20 05:59 Lactated Ringers IV .Q24H KEIRA Intake and Output 01/20/20 01/21/20 01/21/20 22:59 06:59 14:59 Intake Total 100 Balance 100 Intake: IV 100 Other: Weight 101 kg Patient Weight 01/22/20 06:59 Weight 101 kg
[2020-01-21] MEDS ORDERED: LIDOCAINE 1% INJ 10MG/ML (20 ML MDV) SQ ONE (11:45)
[2020-01-21] MEDS ORDERED: ACETAMINOPHEN TAB 325 MG TAB PO PRN (14:23)
[2020-01-21] MEDS ORDERED: HEPARIN SODIUM (1,000 UNIT/ML) 1,000 UNIT in SODIUM CHLORIDE 0.9% 1,000 ML IRRIGATION ONE (14:28)
--- NOTE | 2020-01-21 14:32 | P.PRLE ---
RE: ReneaJordan Dear Maria R Mr. Meier underwent a diagnostic EP study which revealed inducible AV vashti reentrant tachycardia. He underwent successful ablation of the slow pathway. T he tachycardia was rendered noninducible. I would recommend that he stops metoprolol completely at this point He does have a tendency for irregular atrial tachycardia/atrial fibrillation as was demonstrated the EP study It is noteworthy that he required 2200 mg of propofol along with Versed and fentanyl for conscious sedation provided by anesthesia during this 3 hour proc edure. Thank you for entrusting me with the care of the patient Warm regards Sincerely Lamberto Perez
--- NOTE | 2020-01-21 14:34 | P.PCN ---
Preoperative Diagnosis: Patient underwent a diagnostic EP study. It required triple extrastimuli on high-dose Isuprel to induce typical AV node reentry. Thereafter he underwent RF ablation using an non-irrigated tip RF ablation catheter. 50 W of power was used and junctional rhythm was noted during RF lesions with resumption of sinus rhythm However despite this, he remained inducible with triple access stimuli An irrigated tip catheter had to be used and RF ablation was performed with a good contact force as well as irrigation to eliminate the slow pathway completely He required repeated RF lesions in the slow pathway area and repeated testing on high-dose Isuprel with triple extrastimuli to ensure that the tachycardia was rendered noninducible The procedure was successful and the tachycardia was rendered noninducible but after redo ablation using an irrigated tip catheter
[2020-01-21] MEDS ORDERED: ACETAMINOPHEN IV (For NPO) 1,000 MG in EMPTY BAG 1 BAG IVPB ONE (15:00)
[2020-01-21] MEDS ORDERED: MORPHINE SULFATE 4 MG/ML SYRINGE IVP ONE (15:20)
--- NOTE | 2020-01-21 15:28 | CE ---
CARDIAC ELECTROPHYSIOLOGY REPORT This is a 39-year-old male patient who underwent a diagnostic EP study for recurrent palpitations and SVT that was adenosine-sensitive. The patient was brought to the EP lab in a fasting state. Written informed consent was obtained prior to the procedure. Right and left groins were prepped and draped as per protocol. Lidocaine 1% was used for local anesthesia. Venous sheaths were placed in the right and left femoral veins, and via these diagnostic catheters were positioned in the high right atrium, His bundle area, right ventricle and coronary sinus. The baseline measurements were as follows: Sinus cycle length 786 milliseconds, MN interval 138 milliseconds, QRS 91 milliseconds, QT 352 milliseconds. AH interval 78 milliseconds, HV interval 34 milliseconds. Sinus node recovery times at 600, 500 and 400 milliseconds were 1121, 1126 and 1048 milliseconds. AV node Wenckebach block 300 milliseconds. Slow pathway noted at 330 milliseconds, VA Wenckebach block 290 milliseconds. No evidence for accessory pathway conduction. With atrial pacing as well as during AVNRT later, right bundle branch block aberrancy was induced. Atrial and ventricular extrastimulation was performed in the baseline state and occasional echo beats were noted with double extrastimuli. High-dose Isuprel was then used. AV node Wenckebach block improved to 270 milliseconds from the coronary sinus and 260 milliseconds from the high right atrium. Atrial extrastimulation was performed from the high right atrium. SVT could not be induced. With triple extrastimuli SVT with a short RP interval was induced at 400/220/220/220 milliseconds. This was entrained with RV apical pacing. A VAV response was noted. The post-pacing interval minus tachycardia cycle length was long, at 193 milliseconds. Right bundle branch block aberrancy was noted during AVNRT. Isuprel was stopped. A long sheath was placed and non-irrigated ablation catheter was used. The slow pathway was then mapped. The His cloud was mapped and the coronary sinus os and the roof were mapped. Slow pathway was mapped in the region at the level of the coronary sinus. RF ablation resulted in induction of junctional rhythm followed by resumption of sinus rhythm. Several lesions were applied and junctional rhythm was obtained, with resumption of sinus rhythm. However, despite that, with Isuprel and triple extrastimuli from the coronary sinus, AVNRT was once again inducible. RF ablation was once again applied in the region between the slow pathway that was ablated as well as the coronary sinus os, and junctional rhythm was once again obtained. Thereafter, testing again resulted in induction of AV vashti reentry. At this point an irrigated-tip catheter was used. The old catheter was exchanged out and RF ablation was applied in the region of the slow pathway. Good power and contact force was used. Multiple lesions were applied in the areas that earlier showed a junctional rhythm. Junctional rhythm was induced at some sites. Thereafter, high-dose Isuprel was used. Triple extrastimuli from the coronary sinus as well as from the high right atrium did not result in induction of any AV vashti reentry. Please note that on high-dose Isuprel, atrial fibrillation was induced. During the procedure the arrhythmia began with AV vashti reentry induced with triple extrastimuli on Isuprel and then degenerated into atrial fibrillation. This terminated with mechanical termination in the chest wall the slow pathway as we were getting ready to place the catheter for ablation. At the end of the procedure, short bursts of irregular atrial tachycardia were inducible, but no AV vashti reentry inducible on high-dose Isuprel with triple extrastimuli. RESULT: Diagnostic EP study revealing AV vashti re-entry as a mechanism of his tachycardia. Successful mapping and ablation was performed and the tachycardia was rendered noninducible. The patient has a tendency for irregular atrial tachycardia as well as atrial fibrillation. However, the atrial fibrillation began as AV vashti reentry and degenerated into atrial fibrillation. [place] l[place]ito atrial fibrillation was not induced. SUGGEST: Stop metoprolol. Complete abstinence from alcohol as well as marijuana and nicotine products. MMODL / IJN: [id number] /
[2020-01-21] MEDS ORDERED: hydrALAZINE HCL 20 MG/ML 1 ML VIAL IVP ONE (15:37)
[2020-01-21] MEDS: HYDROcodone/APAP 5-325MG 1 EACH TAB PO PRN ×2 (17:48→21:07)
[2020-01-21] MEDS ORDERED: ONDANSETRON 4 MG/2 ML VIAL ONE (18:04)
[2020-01-21] MEDS ORDERED: ONDANSETRON 4 MG/2 ML VIAL IVP PRN (18:06)
[2020-01-21] MEDS ORDERED: Cariprazine Hcl [Vraylar] PO SCH (21:00)
[2020-01-21] MEDS: sulfaSALAzine 500 MG TAB PO SCH (21:08)
[2020-01-22 04:13] VITALS: RESP 16
[2020-01-22] MEDS ORDERED: Cariprazine Hcl [Vraylar] PO SCH (09:00)
[2020-01-22] MEDS ORDERED: buPROPion XL 150 MG TAB.ER.24H PO SCH (09:00)
[2020-01-22 09:01] VITALS: BP 120/79; PULSE 72; TEMP 98
[2020-01-22] MEDS: sulfaSALAzine 500 MG TAB PO SCH (09:05)
--- NOTE | 2020-01-22 16:15 | DS ---
DISCHARGE SUMMARY Mr. Meier is a 39-year-old male patient of Dr. Whiting and Dr. Rose who underwent a diagnostic EP study yesterday for recurrent palpitations and that were drug refractory. He is found to have AV vashti reentrant tachycardia and he underwent successful slow pathway ablation. The tachycardia was rendered noninducible. He also had inducible atrial tach and inducible irregular atrial tachycardia, nonsustained as well as a 15 episodes of the episode of sustained episodes of atrial fibrillation on Isuprel with atrial pacing. He is in sinus rhythm. The EKG is normal blood pressure is in the normal range. Heart rates are normal on auscultation. Heart sounds S1, S2 normal. No murmurs or gallops. No rub. Breath sounds are clear. No rhonchi, no crackles abdomen is soft, nontender. The right groin is mildly tender. There is no hematoma no swelling. No JVD. 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 Status post slow pathway ablation. The tachycardia was rendered noninducible. The tendency for irregular atrial tachycardia and atrial fibrillation noted with atrial pacing on Isuprel. PLAN: The patient may go home today. In the next few hours as long as is vitals are stable and he is ambulating in the hallways without any symptoms. He will follow up with Dr. Whiting within a week. I have asked him to hold metoprolol for now. I would use metoprolol only for 15 episodes of atrial tachycardia and atrial fibrillation in the future. Patient was counseled against regular alcohol use as well as use of marijuana and cigarettes. MMODL / IJN: [id number] /
== END 2020-01-22 10:34 | disposition home or self-care (01) ==
LOC: CATHEP 10:15 → 1SOBS 14:20 → CATHEP 01-22 10:34
PROVIDERS: ATTEND Internal Medicine Clinical Cardiac Electrophysiology
DX: I47.1 Supraventricular tachycardia (principal); I48.91 Unspecified atrial fibrillation; F31.9 Bipolar disorder, unspecified; K21.9 Gastro-esophageal reflux disease without esophagitis; B19.20 Unspecified viral hepatitis C without hepatic coma; K51.90 Ulcerative colitis, unspecified, without complications; Z79.899 Other long term (current) drug therapy; Z98.890 Other specified postprocedural states; Z87.891 Personal history of nicotine dependence; Z82.49 Family history of ischemic heart disease and other diseases of the circulatory system
CPT/HCPCS: 93623; 93613; 93653; C1894; C1769 ×2; C1730 ×3; C1732 ×2; C1893; J2250; J2270; J0360; J2405; J2001; J3010; J1644; J0131; J2704

== ENCOUNTER → 2022-04-04 | Outpatient (CLI) | payer OTHER ==
[2022-04-04 15:11] LABS: HGB 15.4 g/dL (13.0-17.0); MCH 32.8 pg (27.0-32.0); MCHC 34.2 g/dL (32.0-37.0); MCV 95.9 fL (80.0-97.0); Mean Platelet Volume 11.5 fL (9.5-12.2); NRBC Per 100 WBC 0 /100 WBCS (0.0-0.0); Platelet Count 250 X 10*3/uL (140-440); RBC 4.69 X 10*6/uL (4.40-5.60); WBC 5.89 X 10*3/uL (4.50-10.00)
[2022-04-04 15:25] LABS: African American GFR (CKD) 105.1 (60.0-200.0); Albumin 5.1 g/dL (3.8-4.9); Albumin/Globulin Ratio 1.56 (1.60-3.17); Anion Gap 11.4 mmol/L (10.00-18.00); BUN/Creat Ratio 13.76 Ratio (12.00-20.00); Blood Urea Nitrogen 13.9 mg/dL (9.0-27.0); Carbon Dioxide 25.1 mmol/L (20.0-27.5); Globulin 3.3 g/dL (1.6-3.3); Non-African American GFR(CKD) 90.7 (60.0-200.0); Potassium 5.2 mmol/L (3.5-5.5); Total Bilirubin 0.8 mg/dL (0.30-1.20); Total Protein 8.3 g/dL (6.2-8.2)
== END | disposition home or self-care (01) ==
LOC: LABWHC1 08:32
PROVIDERS: ATTEND Internal Medicine Gastroenterology
DX: B18.2 Chronic viral hepatitis C (principal); Z53.9 Procedure and treatment not carried out, unspecified reason
CPT/HCPCS: 36415; 80053; 85027